=== PATIENT | male | born 1960 | race Caucasian/White ===

== ENCOUNTER 2018-09-13 09:01 | Day surgery (SDC) | payer MEDICAID ==
[2018-09-09 10:44] LABS: BASOPHILS % (AUTO) 0.9 % (0-1); EOSINOPHILS # (AUTO) 0.1 X10'3 (0-0.9); EOSINOPHILS % (AUTO) 2.9 % (0-6); LYMPHOCYTES # (AUTO) 0.7 X10'3 (1.1-4.8); LYMPHOCYTES % (AUTO) 22.4 % (21-51); MEAN CORPUSCULAR HEMOGLOBIN 32.8 PG (27.0-31.0); MEAN CORPUSCULAR HGB CONC 34.1 g/dL (33.0-36.5); MEAN CORPUSCULAR VOLUME 96.2 FL (78-98); MEAN PLATELET VOLUME 6.8 FL (7.4-10.4); MONOCYTES # (AUTO) 0.3 X10'3 (0-0.9); MONOCYTES % (AUTO) 9.7 % (2-12); NEUTROPHILS # (AUTO) 1.9 X10'3 (1.8-7.7); NEUTROPHILS % (AUTO) 64.1 % (42-75); PRE OP HEMATOCRIT 39.2 % (42.0-52.0); PRE OP HEMOGLOBIN 13.4 g/dL (14.0-17.9); PRE OP PLATELET COUNT 171 X10'3 (140-440); RED BLOOD COUNT 4.08 X10'6 (4.70-6.10); RED CELL DISTRIBUTION WIDTH 13.7 % (11.5-14.5)
[2018-09-09 10:46] LABS: CLARITY,URINE CLEAR (Clear); COLOR,URINE YELLOW (Yellow); GLUCOSE, URINE NEGATIVE (Neg); KETONES,URINE NEGATIVE (Neg); LEUKOCYTE ESTERASE ,URINE NEGATIVE (Neg); NITRITES, URINE NEGATIVE (Neg); OCCULT BLOOD,URINE NEGATIVE (Neg); PROTEIN,URINE NEGATIVE (Neg); UA COLLECTION TYPE NON-SPECIFIED; UROBILINOGEN,URINE 0.2 E.U/dL (0.2-1.0)
[2018-09-09 11:07] LABS: ALBUMIN 3.8 G/DL (3.4-5.0); ALBUMIN/GLOBULIN RATIO 1.2 (1.1-1.5); ALKALINE PHOSPHATASE 73 IU/L (46-116); BLOOD UREA NITROGEN 12 MG/DL (7-18); BUN/CREATININE RATIO 10.3 (5.4-32.0); CALCIUM 8.8 MG/DL (8.5-10.1); CHLORIDE 102 MMOL/L (99-107); CREATININE 1.16 MG/DL (0.60-1.10); PRE OP ALT 19 U/L (30-65); PRE OP ANION GAP 9 (8-16); PRE OP AST 23 U/L (10-37); PRE OP BILIRUB, TOTAL 0.5 MG/DL (0.0-1.0); PRE OP GLUCOSE 86 MG/DL (70-104); PRE OP SODIUM 138 MMOL/L (135-145); TOTAL CARBON DIOXIDE 27.4 MMOL/L (24-32); TOTAL PROTEIN 7.1 G/DL (6.4-8.2); eGFR 64 ML/MIN
[2018-09-09 11:27] LABS: PRE OP PROTIME 10.4 SECONDS (9.0-12.0)
[2018-09-13] VITALS (8 sets, daily range): BP systolic 111–135; BP diastolic 80–90
[~2018-09-13] VITALS: Ht 172.7 cm; Wt 68.0 kg
[~2018-09-13 09:01] MED LIST: ALBU18HF2 INH; BACDS PO; DOLU50TA PO; ECON15CR2 TP; EMTR1TAB18 PO; FLUT16SP2 BOTHNARES; HYDR-4383 PO; IBUP-1985 PO; OLOP2.5D OP; cefazolin/dext.iso 2gm/50ml 50 ML IV ONE; famotidine 20mg tablet PO ONE; ringers solution, lacted 1,000 ML IV SCH
[2018-09-13] MEDS ORDERED: ringers solution, lacted 1,000 ML IV SCH ×2 (10:56→11:01)
[2018-09-13] MEDS ORDERED: proCHLORperazine 10 MG/2 ml inj IV PRN ×2 (11:00→11:05)
[2018-09-13] MEDS ORDERED: meperidine/PF 25mg/ml syringe IV PRN ×6 (11:00→11:05)
[2018-09-13] MEDS ORDERED: ondansetron/PF 4mg/2ml inj IV PRN ×2 (11:00→11:05)
[2018-09-13] MEDS ORDERED: morphine 4 MG/ML inj SYRINge IV PRN ×4 (11:00→11:05)
[2018-09-13] MEDS ORDERED: fentaNYL/PF 50MCG/1 ML 2ML syringe ONE (11:10)
[2018-09-13] MEDS ORDERED: midazolam 2 mg/2 ml injection ONE (11:10)
[2018-09-13] MEDS ORDERED: LIDOcaine 1%/PF 5ML 10 MG/ML VIAL ONE (11:11)
[2018-09-13] MEDS ORDERED: ROPIVAcaine 0.5% (5mg/ml) 30ml vial ONE (11:24)
[2018-09-13] MEDS ORDERED: desflurane 240ml liquid inh. IH ONE (11:35)
[2018-09-13] MEDS ORDERED: ketorolac trometh. 30mg/ml inj. ONE (12:16)
[2018-09-13] MEDS ORDERED: propofol inj 20 ML IV ONE (12:17)
--- NOTE | 2018-09-13 12:30 | NUR ---
Received from OR via bed, accompanied by Anesthesiologist. Report received. Initial physical assessment done and recorded.
--- NOTE | 2018-09-13 13:30 | NUR ---
Discharge criteria met, discharge instructions given, demonstrates verbal understanding. Discharged home in good condition.
== END 2018-09-13 13:30 | disposition home or self-care (01) ==
LOC: PAS 09:01
PROVIDERS: ATTEND Surgery
DX: K62.0 Anal polyp (principal); J44.9 Chronic obstructive pulmonary disease, unspecified; Z98.890 Other specified postprocedural states; Z79.899 Other long term (current) drug therapy; I10 Essential (primary) hypertension; Z21 Asymptomatic human immunodeficiency virus [HIV] infection status
CPT/HCPCS: 36415; 46922; 80053; 81003; 82948; 85025; 85610; 85730; 93005; A6224; A6449; J0690; J1885; J2001; J2250; J2704; J3010; A7000; J2795; J7120

== ENCOUNTER 2019-06-12 10:26 | Day surgery (SDC) | payer MEDICAID ==
[2019-06-09 11:54] LABS: BASOPHILS % (AUTO) 0.6 % (0-1); EOSINOPHILS # (AUTO) 0.2 X10'3 (0-0.9); EOSINOPHILS % (AUTO) 3.9 % (0-6); HEMATOCRIT 39.3 % (42.0-52.0); HEMOGLOBIN 13.3 g/dl (14.0-17.9); LYMPHOCYTES # (AUTO) 0.9 X10'3 (1.1-4.8); LYMPHOCYTES % (AUTO) 17.6 % (21-51); MEAN CORPUSCULAR HEMOGLOBIN 33.8 PG (27.0-31.0); MEAN CORPUSCULAR VOLUME 99.5 FL (78-98); MEAN PLATELET VOLUME 6.9 FL (7.4-10.4); MONOCYTES # (AUTO) 0.4 X10'3 (0-0.9); MONOCYTES % (AUTO) 8.5 % (2-12); NEUTROPHILS # (AUTO) 3.4 X10'3 (1.8-7.7); NEUTROPHILS % (AUTO) 69.4 % (42-75); PLATELET COUNT 170 X10'3 (140-440); RED BLOOD COUNT 3.94 X10'6 (4.70-6.10); WHITE BLOOD COUNT 4.8 X10'3 (4.5-11.0)
[2019-06-09 12:05] LABS: PARTIAL THROMBOPLASTIN TIME 26 SECONDS (22-32)
[2019-06-09 12:08] LABS: ALANINE AMINOTRANSFERASE 15 U/L (12-78); ALBUMIN 4.1 G/DL (3.4-5.0); ALBUMIN/GLOBULIN RATIO 1.1 (1.1-1.5); ALKALINE PHOSPHATASE 80 IU/L (46-116); ANION GAP 7 (8-16); ASPARTATE AMINO TRANSFERASE 20 U/L (10-37); BILIRUBIN,TOTAL 0.3 MG/DL (0.1-1.0); BLOOD UREA NITROGEN 9 MG/DL (7-18); BUN/CREATININE RATIO 7.4 (5.4-32.0); CALCIUM 8.4 MG/DL (8.5-10.1); CHLORIDE 105 MMOL/L (99-107); CREATININE 1.22 MG/DL (0.60-1.10); GLUCOSE 89 MG/DL (70-104); POTASSIUM 4.5 MMOL/L (3.5-5.1); SODIUM 139 MMOL/L (135-145); TOTAL CARBON DIOXIDE 26.8 MMOL/L (24-32); TOTAL PROTEIN 7.7 G/DL (6.4-8.2); eGFR 61 ML/MIN
[2019-06-12] VITALS (10 sets, daily range): BP systolic 101–161; BP diastolic 67–102
[~2019-06-12] VITALS: Ht 172.7 cm; Wt 69.6 kg
[~2019-06-12 10:26] MED LIST changes: +ECON15CR13 TP; -ECON15CR2 TP; -cefazolin/dext.iso 2gm/50ml 50 ML IV ONE; -famotidine 20mg tablet PO ONE; -ringers solution, lacted 1,000 ML IV SCH
[2019-06-12] MEDS ORDERED: normal saline 1,000 ML IV SCH (10:55)
[2019-06-12] MEDS ORDERED: nitroGLYCERIN 0.4mg SUBLingual tab SL PRN (10:55)
[2019-06-12] MEDS ORDERED: diphenhydrAMINE 25mg capsule PO PRN (10:55)
[2019-06-12] MEDS ORDERED: LORazepam 0.5 MG tablet PO PRN (10:55)
[2019-06-12] MEDS ORDERED: SULF1TAB49 PO (11:09)
[2019-06-12] MEDS ORDERED: midazolam 2 mg/2 ml injection ONE (12:02)
[2019-06-12] MEDS ORDERED: iohexol 350MG/ML 100ml bottle IV ONE (12:02)
[2019-06-12] MEDS ORDERED: fentaNYL/PF 50MCG/1 ML 2ML syringe ONE (12:02)
[2019-06-12] MEDS ORDERED: iohexol 350 MG/ML 50ML vial IV ONE (12:02)
[2019-06-12] MEDS ORDERED: LIDOcaine 1% (10mg/ml)w/preservative injection 20ml MDV ONE (12:02)
[2019-06-12] MEDS ORDERED: HYDROmorphone 1 mg/ml syringe ONE (12:17)
[2019-06-12] MEDS ORDERED: proCHLORperazine 10 MG/2 ml inj IV PRN (13:20)
[2019-06-12] MEDS ORDERED: acetaminophen 325mg tablet PO PRN (13:20)
[2019-06-12] MEDS ORDERED: HYDROcodone/acetaminophen 10/325mg tab PO PRN (13:20)
[2019-06-12] MEDS ORDERED: OXAZEpam 15mg capsule PO PRN (13:20)
[2019-06-12] MEDS ORDERED: ondansetron/PF 4mg/2ml inj IV PRN (13:20)
[2019-06-12] MEDS ORDERED: HYDROcodone/acetaminophen 5mg/325mg tablet PO PRN (13:20)
== END 2019-06-12 18:40 | disposition home or self-care (01) ==
LOC: SSTAY O 10:26
PROVIDERS: ATTEND Internal Medicine Cardiovascular Disease
DX: R94.39 Abnormal result of other cardiovascular function study (principal); E78.5 Hyperlipidemia, unspecified; I25.10 Atherosclerotic heart disease of native coronary artery without angina pectoris; J44.9 Chronic obstructive pulmonary disease, unspecified; Z85.048 Personal history of other malignant neoplasm of rectum, rectosigmoid junction, and anus; Z87.891 Personal history of nicotine dependence; Z79.899 Other long term (current) drug therapy; Z79.01 Long term (current) use of anticoagulants; Z86.19 Personal history of other infectious and parasitic diseases; Z92.21 Personal history of antineoplastic chemotherapy
CPT/HCPCS: 36415; 71046; 80053; 85025; 85610; 85730; 93458; 99152; 99153; C1769; J1170; J1644; J2001; J2250; J2405; J3010; J7030; Q0163; Q9967; A4620; A6258; C1760

== ENCOUNTER 2020-06-03 22:40 | Emergency (ER) | payer MEDICAID ==
[~2020-06-03] VITALS: Ht 175.3 cm; Wt 72.7 kg
[~2020-06-03 22:40] MED LIST changes: -BACDS PO; -ECON15CR13 TP; +ECON15CR4 TP; -OLOP2.5D OP; +OLOP2.5D12 OP; +SULF1TAB49 PO
[2020-06-03] MEDS ORDERED: LORazepam 2 mg/ml vial IV ONE (23:35)
--- NOTE | 2020-06-03 23:44 | NUR ---
patient began act erractically during PA Velazquez evaluation including becoming incontinent. Pa Velazquez is currently ruling out potential siezure.
[2020-06-03 23:54] LABS: BASOPHILS # (AUTO) 0.1 X10'3 (0-0.2); BASOPHILS % (AUTO) 0.5 % (0-1); EOSINOPHILS % (AUTO) 0.4 % (0-6); HEMATOCRIT 46.1 % (42.0-52.0); HEMOGLOBIN 15.9 g/dl (14.0-17.9); LYMPHOCYTES # (AUTO) 1.5 X10'3 (1.1-4.8); LYMPHOCYTES % (AUTO) 13.7 % (21-51); MEAN CORPUSCULAR HEMOGLOBIN 32.9 PG (27.0-31.0); MEAN CORPUSCULAR HGB CONC 34.4 g/dL (33.0-36.5); MEAN CORPUSCULAR VOLUME 95.4 FL (78-98); MEAN PLATELET VOLUME 7.2 FL (7.4-10.4); MONOCYTES # (AUTO) 0.8 X10'3 (0-0.9); MONOCYTES % (AUTO) 7.6 % (2-12); NEUTROPHILS # (AUTO) 8.3 X10'3 (1.8-7.7); NEUTROPHILS % (AUTO) 77.8 % (42-75); PLATELET COUNT 189 X10'3 (140-440); RED BLOOD COUNT 4.83 X10'6 (4.70-6.10); RED CELL DISTRIBUTION WIDTH 15.4 % (11.5-14.5); WHITE BLOOD COUNT 10.7 X10'3 (4.5-11.0)
[2020-06-04] MEDS ORDERED: iohexol 350MG/ML 100ml bottle IV ONE (00:02)
[2020-06-04 00:15] LABS: ALANINE AMINOTRANSFERASE 38 U/L (12-78); ALBUMIN/GLOBULIN RATIO 1.2 (1.1-1.5); ALKALINE PHOSPHATASE 90 IU/L (46-116); ANION GAP 11 (8-16); ASPARTATE AMINO TRANSFERASE 108 U/L (10-37); BILIRUBIN,TOTAL 0.8 MG/DL (0.1-1.0); BLOOD UREA NITROGEN 12 MG/DL (7-18); BUN/CREATININE RATIO 9.4 (5.4-32.0); CALCIUM 9.2 MG/DL (8.5-10.1); CHLORIDE 98 MMOL/L (99-107); CREATININE 1.28 MG/DL (0.60-1.10); GLUCOSE 139 MG/DL (70-104); SODIUM 135 MMOL/L (135-145); TOTAL CARBON DIOXIDE 26.3 MMOL/L (24-32); TOTAL PROTEIN 9.1 G/DL (6.4-8.2); TROPONIN I < 0.04 NG/ML (0.0-0.05); eGFR 57 ML/MIN
[2020-06-04 00:20] VITALS: BP 151/107
[2020-06-04 00:22] LABS: POTASSIUM 4.3 MMOL/L (3.5-5.1)
[2020-06-04 00:36] LABS: CLARITY,URINE CLEAR (Clear); COLOR,URINE YELLOW (Yellow); GLUCOSE, URINE NEGATIVE (Neg); KETONES,URINE TRACE mg/dl (Neg); LEUKOCYTE ESTERASE ,URINE NEGATIVE (Neg); NITRITES, URINE NEGATIVE (Neg); OCCULT BLOOD,URINE LARGE (Neg); PROTEIN,URINE 30 mg/dl (Neg); UROBILINOGEN,URINE 0.2 E.U/dL (0.2-1.0)
[2020-06-04 00:38] LABS: UA COLLECTION TYPE STRAIGHT CATH; URINE AMPHETAMINE SCREEN NEGATIVE (Neg); URINE BARBITUATE SCREEN NEGATIVE (Neg); URINE BENZODIAZEPINES SCREEN NEGATIVE (Neg); URINE CANNABINOID SCREEN POSITIVE (Neg); URINE COCAINE SCREEN NEGATIVE (Neg); URINE METHADONE SCREEN NEGATIVE (Neg); URINE OPIATE SCREEN NEGATIVE (Neg); URINE PHENCYCLIDINE SCREEN NEGATIVE (Neg)
[2020-06-04 00:46] LABS: WBC,URINE 0-4 /HPF (0-4)
[2020-06-04 00:47] LABS: BACTERIA,URINE NONE SEEN /HPF (Neg); HYALINE CASTS 0-3 /LPF (NEGATIVE); MUCUS STRANDS MODERATE /LPF (Neg); SQUAMOUS EPITHELIAL CELL,UR FEW /LPF (FEW); TRANSITIONAL EPI CELLS,URINE FEW /HPF
[2020-06-04 00:56] LABS: CKMB RELATIVE INDEX 1.2 RATIO (0-2.5); CREATINE KINASE 5598 U/L (39-308)
== END 2020-06-04 02:16 | disposition home or self-care (01) ==
LOC: ER 22:41
DX: R56.9 Unspecified convulsions (principal); G89.29 Other chronic pain; M54.9 Dorsalgia, unspecified; Z79.899 Other long term (current) drug therapy
CPT/HCPCS: 36415; 70450; 71275; 74174; 80053; 80305; 81001; 82550; 82553; 82948; 83605; 84145; 84484; 85025; 96374; 99285; J2060; Q9967; 96372

== ENCOUNTER 2020-07-19 18:13 | Inpatient (IN) | payer MEDICAID ==
[~2020-07-19] VITALS: Ht 170.2 cm; Wt 67.2 kg
[2020-07-19] MEDS ORDERED: normal saline 1000ML IV soln IVB ONE (18:20)
[2020-07-19] MEDS ORDERED: LORazepam 2 mg/ml vial IV ONE ×3 (18:50→19:05)
[2020-07-19] MEDS ORDERED: LORazepam 2 mg/ml vial ONE (18:50)
[2020-07-19 19:07] LABS: BASOPHILS % (AUTO) 0.7 % (0-1); EOSINOPHILS # (AUTO) 0.3 X10'3 (0-0.9); EOSINOPHILS % (AUTO) 4.5 % (0-6); HEMATOCRIT 43.8 % (42.0-52.0); HEMOGLOBIN 14.5 g/dl (14.0-17.9); LYMPHOCYTES % (AUTO) 16.1 % (21-51); MEAN CORPUSCULAR HEMOGLOBIN 33.2 PG (27.0-31.0); MEAN CORPUSCULAR HGB CONC 33.2 g/dL (33.0-36.5); MEAN PLATELET VOLUME 7.7 FL (7.4-10.4); MONOCYTES # (AUTO) 0.5 X10'3 (0-0.9); NEUTROPHILS # (AUTO) 4.2 X10'3 (1.8-7.7); NEUTROPHILS % (AUTO) 70.7 % (42-75); PLATELET COUNT 196 X10'3 (140-440); RED BLOOD COUNT 4.38 X10'6 (4.70-6.10); RED CELL DISTRIBUTION WIDTH 13.7 % (11.5-14.5)
[2020-07-19] MEDS ORDERED: levetiracetam inj 500 MG in normal saline 100ml IV soln 95 ML IV ONE (19:10)
[2020-07-19 19:15] LABS: ALANINE AMINOTRANSFERASE 22 U/L (12-78); ALBUMIN 4.3 G/DL (3.4-5.0); ALBUMIN/GLOBULIN RATIO 1.3 (1.1-1.5); ALKALINE PHOSPHATASE 71 IU/L (46-116); ANION GAP 20 (8-16); ASPARTATE AMINO TRANSFERASE 22 U/L (10-37); BILIRUBIN,TOTAL 0.4 MG/DL (0.1-1.0); BLOOD UREA NITROGEN 10 MG/DL (7-18); CALCIUM 8.7 MG/DL (8.5-10.1); CHLORIDE 102 MMOL/L (99-107); CREATINE KINASE 416 U/L (39-308); CREATININE 1.66 MG/DL (0.60-1.10); ETHANOL < 0.010 GM/DL (0.0-0.010); GLUCOSE 146 MG/DL (70-104); POTASSIUM 3.7 MMOL/L (3.5-5.1); SODIUM 139 MMOL/L (135-145); TOTAL CARBON DIOXIDE 17.4 MMOL/L (24-32); TOTAL PROTEIN 7.7 G/DL (6.4-8.2); eGFR 42 ML/MIN
--- NOTE | 2020-07-19 19:22 | NUR ---
dr ennis informed that patient has no gag and sounds like he needs nasopharyngeal suctioning patietn incontnent of urine during seizure activity
[2020-07-19] MEDS ORDERED: propofol 10mg/ml 20ml vial IV ONE (19:25)
[2020-07-19] MEDS ORDERED: rocuronium 10mg/ml inj IV ONE (19:25)
[2020-07-19] MEDS ORDERED: fentaNYL/PF 50MCG/1 ML 2ML syringe IV PRN (19:25)
--- NOTE | 2020-07-19 19:37 | NUR ---
to intubate to ensure airway r/t continuing siezures. Respiratory present. cleared C-collar removal
[2020-07-19] MEDS ORDERED: midazolam 100mg in NS 100ml 100 ML IV PRN (19:40)
[2020-07-19] MEDS ORDERED: FENTANYL-0.9 % NACL/PF 100 ML IV PRN (19:40)
--- NOTE | 2020-07-19 19:42 | NUR ---
PROPOFOL IN AND FLUSHED 100 MG ROCURONIUM IN FLUSHED 4 MAC BLADE 24 AT THE TEETH
[2020-07-19] MEDS: midazolam 100mg in NS 100ml 100 ML IV SCH ×2 (19:47→23:56)
[2020-07-19] MEDS: FENTANYL-0.9 % NACL/PF 100 ML IV PRN ×2 (19:54→23:55)
[2020-07-19] MEDS ORDERED: levetiracetam inj 1,000 MG in normal saline 100ml IV soln 90 ML IV SCH (20:00)
[2020-07-19] MEDS ORDERED: acetaminophen 650mg rectal suppository RC PRN (20:10)
[2020-07-19] MEDS ORDERED: potassium Cl 40MEQ/250ML bag 270 ML IV PRN (20:10)
[2020-07-19] MEDS ORDERED: albuterol 2.5 MG/3 ML nebule NEB PRN (20:10)
[2020-07-19] MEDS ORDERED: acetaminophen 325mg tablet PO PRN ×2 (20:10)
[2020-07-19] MEDS ORDERED: ondansetron/PF 4mg/2ml inj IV PRN (20:10)
[2020-07-19] MEDS: sodium chloride 0.45% 1,000 ML IV SCH ×4 (20:35→23:58)
[2020-07-19 20:40] LABS: ABG HCO3 24.5 mmol/L (22.0-26.0); ABG OXYGEN SATURATION 98.8 % (94-97); ABG PCO2 (T) 58.9 mmHg (35.0-48.0); ABG PO2 (T) 181.5 mmHg (75.0-100.0); ALLEN'S TEST POSITIVE; FCOHb 2.7 % (0.0-3.9); FMetHb 0.3 % (0.0-1.5); FO2Hb 95.8 % (94-97); PEEP 5 cm H2O; RESPIRATORY RATE 14 b/min; TIDAL VOLUME 450 mL; TOTAL HEMOGLOBIN 15.1 G/dl (14.0-18.0)
[2020-07-19] MEDS: CefTRIAXone 2gm/D5W 50ml BAG 50 ML IV SCH (20:40)
[2020-07-19 20:42] LABS: MAGNESIUM 2.3 MG/DL (1.5-2.4); PHOSPHORUS 4.8 MG/DL (2.3-4.5)
[2020-07-19 20:57] LABS: PARTIAL THROMBOPLASTIN TIME 22 SECONDS (22-32)
[2020-07-19] MEDS: propofol 1000mg/100ml bottle 100 ML IV SCH ×2 (21:16→23:53)
[2020-07-19] MEDS ORDERED: LORazepam 2 mg/ml vial IV PRN (21:40)
[2020-07-19 21:47] LABS: CLARITY,URINE CLEAR (Clear); COLOR,URINE YELLOW (Yellow); GLUCOSE, URINE NEGATIVE (Neg); KETONES,URINE NEGATIVE (Neg); LEUKOCYTE ESTERASE ,URINE NEGATIVE (Neg); NITRITES, URINE NEGATIVE (Neg); OCCULT BLOOD,URINE SMALL (Neg); PH,URINE 6.5 (4.8-8.0); PROTEIN,URINE TRACE mg/dl (Neg); UROBILINOGEN,URINE 0.2 E.U/dL (0.2-1.0)
[2020-07-19 21:52] LABS: UA COLLECTION TYPE FOLEY CATH
[2020-07-19 21:55] LABS: BACTERIA,URINE NONE SEEN /HPF (Neg); MUCUS STRANDS NONE SEEN /LPF (Neg); SQUAMOUS EPITHELIAL CELL,UR NONE SEEN /LPF (FEW); WBC,URINE 0-4 /HPF (0-4)
[2020-07-19 22:00] VITALS: BP 107/74
[2020-07-19 22:00] LABS: URINE AMPHETAMINE SCREEN NEGATIVE (Neg); URINE BARBITUATE SCREEN NEGATIVE (Neg); URINE BENZODIAZEPINES SCREEN POSITIVE (Neg); URINE CANNABINOID SCREEN POSITIVE (Neg); URINE COCAINE SCREEN NEGATIVE (Neg); URINE METHADONE SCREEN NEGATIVE (Neg); URINE OPIATE SCREEN NEGATIVE (Neg); URINE PHENCYCLIDINE SCREEN NEGATIVE (Neg)
[2020-07-19] MEDS: azithromycin/NS 500mg/250ml 250 ML IV SCH (22:05)
[2020-07-19 22:24] LABS: ALANINE AMINOTRANSFERASE 21 U/L (12-78); ALBUMIN/GLOBULIN RATIO 1.3 (1.1-1.5); ALKALINE PHOSPHATASE 67 IU/L (46-116); ANION GAP 8 (8-16); ASPARTATE AMINO TRANSFERASE 22 U/L (10-37); BILIRUBIN,TOTAL 0.4 MG/DL (0.1-1.0); BLOOD UREA NITROGEN 8 MG/DL (7-18); BUN/CREATININE RATIO 6.8 (5.4-32.0); CHLORIDE 102 MMOL/L (99-107); CREATININE 1.17 MG/DL (0.60-1.10); GLUCOSE 132 MG/DL (70-104); POTASSIUM 3.8 MMOL/L (3.5-5.1); SODIUM 137 MMOL/L (135-145); TOTAL CARBON DIOXIDE 26.6 MMOL/L (24-32); TOTAL PROTEIN 7.2 G/DL (6.4-8.2); eGFR 63 ML/MIN
[2020-07-19 22:30] VITALS: BP 91/63
[2020-07-19 23:00] VITALS: BP 94/76
[2020-07-19] MEDS: ipratropium/albuterol 3ml nebule NEB SCH (23:26)
[2020-07-19 23:30] VITALS: BP 112/80
[2020-07-20] VITALS (24 sets, daily range): BP systolic 84–129; BP diastolic 56–84
[2020-07-20] MEDS: sodium chloride 0.45% 1,000 ML IV SCH ×5 (00:16→12:56)
[2020-07-20 03:21] LABS: ALANINE AMINOTRANSFERASE 23 U/L (12-78); ALBUMIN 3.8 G/DL (3.4-5.0); ALBUMIN/GLOBULIN RATIO 1.2 (1.1-1.5); ALKALINE PHOSPHATASE 64 IU/L (46-116); ANION GAP 11 (8-16); ASPARTATE AMINO TRANSFERASE 26 U/L (10-37); BILIRUBIN,TOTAL 0.5 MG/DL (0.1-1.0); BLOOD UREA NITROGEN 7 MG/DL (7-18); CALCIUM 8.3 MG/DL (8.5-10.1); CHLORIDE 103 MMOL/L (99-107); GLUCOSE 114 MG/DL (70-104); MAGNESIUM 2.3 MG/DL (1.5-2.4); PHOSPHORUS 3.6 MG/DL (2.3-4.5); POTASSIUM 3.8 MMOL/L (3.5-5.1); SODIUM 139 MMOL/L (135-145); TOTAL CARBON DIOXIDE 25.2 MMOL/L (24-32); eGFR 76 ML/MIN
[2020-07-20 03:22] LABS: TRIGLYCERIDES 159 MG/DL (20-135)
[2020-07-20] MEDS: ipratropium/albuterol 3ml nebule NEB SCH ×6 (03:41→23:00)
[2020-07-20 03:50] LABS: BASOPHILS % (AUTO) 0.2 % (0-1); EOSINOPHILS % (AUTO) 0.5 % (0-6); HEMATOCRIT 40.1 % (42.0-52.0); HEMOGLOBIN 13.8 g/dl (14.0-17.9); LYMPHOCYTES # (AUTO) 0.5 X10'3 (1.1-4.8); LYMPHOCYTES % (AUTO) 5.2 % (21-51); MEAN CORPUSCULAR HEMOGLOBIN 33.9 PG (27.0-31.0); MEAN CORPUSCULAR HGB CONC 34.5 g/dL (33.0-36.5); MEAN CORPUSCULAR VOLUME 98.4 FL (78-98); MEAN PLATELET VOLUME 7.6 FL (7.4-10.4); MONOCYTES # (AUTO) 0.7 X10'3 (0-0.9); MONOCYTES % (AUTO) 6.4 % (2-12); NEUTROPHILS # (AUTO) 9.3 X10'3 (1.8-7.7); NEUTROPHILS % (AUTO) 87.7 % (42-75); PLATELET COUNT 181 X10'3 (140-440); RED BLOOD COUNT 4.08 X10'6 (4.70-6.10); RED CELL DISTRIBUTION WIDTH 13.7 % (11.5-14.5); WHITE BLOOD COUNT 10.6 X10'3 (4.5-11.0)
[2020-07-20 03:55] LABS: ABG BASE EXCESS -2.3 mmol/L (-2.0-2.0); ABG HCO3 22.8 mmol/L (22.0-26.0); ABG OXYGEN SATURATION 98.9 % (94-97); ABG PCO2 (T) 40.3 mmHg (35.0-48.0); ABG PO2 (T) 142.2 mmHg (75.0-100.0); ALLEN'S TEST POSITIVE; FCOHb 1.1 % (0.0-3.9); FMetHb 0.1 % (0.0-1.5); FO2Hb 97.7 % (94-97); PATIENT TEMPERATURE 36.9; PEEP 5 cm H2O; RESPIRATORY RATE 18 b/min; TIDAL VOLUME 450 mL; TOTAL HEMOGLOBIN 14.4 G/dl (14.0-18.0)
[2020-07-20] MEDS ORDERED: FENTANYL-0.9 % NACL/PF 100 ML IV PRN (06:00)
[2020-07-20] MEDS: propofol 1000mg/100ml bottle 100 ML IV SCH (06:04)
[2020-07-20] MEDS: NORepinephrine 8mg/ 250ml NS 250 ML IV SCH (06:25)
[2020-07-20] MEDS: docusate sod 100mg capsule PO SCH ×2 (08:00→20:00)
[2020-07-20] MEDS: pantoprazole 40 MG vial IV SCH (08:06)
[2020-07-20] MEDS: levetiracetam-NS 1000mg/100ml 100 ML IV SCH ×2 (08:06→20:28)
[2020-07-20] MEDS: heparin, porcine 5000 units/ml vial SQ SCH ×2 (08:07→20:28)
[2020-07-20] MEDS ORDERED: LEVE750T PO (10:26)
[2020-07-20] MEDS ORDERED: BACDS PO (10:26)
--- NOTE | 2020-07-20 11:30 | NUR ---
Extubated per MD order. Patient tolerating well
--- NOTE | 2020-07-20 11:34 | NUR ---
PT WAS EXTUBATED WITH NO WEANING PARAMETERS PER DR. BOSWELL. PT CURRENTLY ON 3L SPO2 97% NO SOB OR DISTRESS. RT WILL CONTINUE TO MONITOR. Addendum: 07/20/20 at 1156 by Millie Irwin RT Amended: Links added.
--- NOTE | 2020-07-20 11:43 | NUR ---
Presented to ED with seizures, now intubated and sedated. Per MD note possible aspiration pneumonia and will see if will extubate soon. NPO, no TF consult at this time. recommend: 1. IF TF, vital AF 65 ml/hr 2. when extubated, advance diet as medically indicated to heart healthy 3. wt per rx Addendum: 07/20/20 at [address] Amended: Links added.
--- NOTE | 2020-07-20 18:07 | NUR ---
Patient in room ICU 2040. I have received report from Sen LAZAR and had the opportunity to ask questions and assume patient care.
--- NOTE | 2020-07-20 18:56 | NUR ---
patient cannot eat a regular diet unless it is soft. Dietary will bring patient a egg salad sandwich for patient. patient states he does not have his teeth and did not bring his dentures.
[2020-07-20] MEDS ORDERED: HYDROcodone/acetaminophen 5mg/325mg tablet PO PRN (20:50)
[2020-07-20] MEDS: CefTRIAXone 2gm/D5W 50ml BAG 50 ML IV SCH (20:57)
[2020-07-20] MEDS ORDERED: emtricitabine/tenofovir 200mg/300mg tablet PO ONE (21:00)
[2020-07-20] MEDS ORDERED: fluticasone nasal spray 16GM bottle NS PRN (21:00)
--- NOTE | 2020-07-20 21:00 | NUR ---
patient states he did not take his HIV medication since Thursday 07/19 night. He states he is to take his meds every night. He has attempted to call his sister multiple times but no response. patient reuses the compatible HIV medication since pharmacy did not have the exact medication here. Patient states that his family will bring in the medication tomorrow.
[2020-07-20] MEDS: azithromycin/NS 500mg/250ml 250 ML IV SCH (22:14)
[2020-07-20] MEDS ORDERED: raltegravir 400mg tablet PO ONE (22:50)
[2020-07-21] VITALS (14 sets, daily range): BP systolic 108–146; BP diastolic 66–99
[2020-07-21] MEDS: sodium chloride 0.45% 1,000 ML IV SCH (00:31)
[2020-07-21] MEDS: mineral oil/petrolatum ophthal oint EACHEYE SCH ×2 (02:00→08:00)
[2020-07-21] MEDS: NORepinephrine 8mg/ 250ml NS 250 ML IV SCH (02:16)
[2020-07-21 03:46] LABS: BASOPHILS % (AUTO) 0.5 % (0-1); EOSINOPHILS # (AUTO) 0.1 X10'3 (0-0.9); EOSINOPHILS % (AUTO) 0.7 % (0-6); HEMATOCRIT 38.2 % (42.0-52.0); HEMOGLOBIN 12.9 g/dl (14.0-17.9); LYMPHOCYTES # (AUTO) 0.7 X10'3 (1.1-4.8); LYMPHOCYTES % (AUTO) 8.1 % (21-51); MEAN CORPUSCULAR HEMOGLOBIN 33.2 PG (27.0-31.0); MEAN CORPUSCULAR HGB CONC 33.9 g/dL (33.0-36.5); MEAN CORPUSCULAR VOLUME 98.1 FL (78-98); MEAN PLATELET VOLUME 7.6 FL (7.4-10.4); MONOCYTES # (AUTO) 0.6 X10'3 (0-0.9); MONOCYTES % (AUTO) 7.4 % (2-12); NEUTROPHILS # (AUTO) 6.9 X10'3 (1.8-7.7); NEUTROPHILS % (AUTO) 83.3 % (42-75); PLATELET COUNT 157 X10'3 (140-440); RED BLOOD COUNT 3.89 X10'6 (4.70-6.10); RED CELL DISTRIBUTION WIDTH 13.5 % (11.5-14.5); WHITE BLOOD COUNT 8.2 X10'3 (4.5-11.0)
--- NOTE | 2020-07-21 03:50 | NUR ---
patient refuses bed change, he stated he took a shower the other day and feels clean. will continue to educate patient
[2020-07-21 03:52] LABS: ALANINE AMINOTRANSFERASE 20 U/L (12-78); ALBUMIN 3.3 G/DL (3.4-5.0); ALKALINE PHOSPHATASE 59 IU/L (46-116); ANION GAP 12 (8-16); ASPARTATE AMINO TRANSFERASE 32 U/L (10-37); BILIRUBIN,TOTAL 0.5 MG/DL (0.1-1.0); BLOOD UREA NITROGEN 8 MG/DL (7-18); BUN/CREATININE RATIO 9.3 (5.4-32.0); CALCIUM 8.5 MG/DL (8.5-10.1); CHLORIDE 105 MMOL/L (99-107); CREATININE 0.86 MG/DL (0.60-1.10); GLUCOSE 97 MG/DL (70-104); PHOSPHORUS 2.8 MG/DL (2.3-4.5); POTASSIUM 3.7 MMOL/L (3.5-5.1); SODIUM 142 MMOL/L (135-145); TOTAL CARBON DIOXIDE 24.8 MMOL/L (24-32); TOTAL PROTEIN 6.6 G/DL (6.4-8.2); eGFR 90 ML/MIN
--- NOTE | 2020-07-21 06:11 | NUR ---
patient starting to have a wet cough and has green/ yellow sputum. will pass on to day shift nurse. no other s.s
--- NOTE | 2020-07-21 06:15 | NUR ---
Patient in room ICU 2040. I have received report from iftikhar amato and had the opportunity to ask questions and assume patient care.
--- NOTE | 2020-07-21 06:28 | NUR ---
Problems reprioritized. Patient report given, questions answered & plan of care reviewed with Afua LAZAR.
[2020-07-21] MEDS: pantoprazole 40 MG vial IV SCH (07:38)
[2020-07-21] MEDS: levetiracetam-NS 1000mg/100ml 100 ML IV SCH (07:43)
[2020-07-21] MEDS: docusate sod 100mg capsule PO SCH (08:00)
[2020-07-21] MEDS ORDERED: DOLUTEGRAVIR SODIUM PO SCH (08:00)
[2020-07-21] MEDS ORDERED: TYPE IN GENERIC & BRAND NAME OF PATIENT MED STRENGTH & FORM EACHEYE SCH (08:00)
[2020-07-21] MEDS ORDERED: (Emtricitabine/Tenofov Alafenam (Descovy 200-25 mg Tablet) 1 TAB) PO SCH (08:00)
[2020-07-21] MEDS: heparin, porcine 5000 units/ml vial SQ SCH (08:05)
[2020-07-21] MEDS: propofol 1000mg/100ml bottle 100 ML IV SCH (11:18)
--- NOTE | 2020-07-21 11:30 | NUR ---
f/c dc'd w/o problem,CL dc'd from right neck with sterile technique,pressure held,site clear
--- NOTE | 2020-07-21 13:54 | NUR ---
reviewed all discharge instructions with pt,,no new prescriptions,media planner in to discuss home health to contact, contacted pts sister redd for ride home,she states she will be here in approx 2 hours,due to need to borrow vehicle
--- NOTE | 2020-07-21 14:25 | NUR ---
sister redd stated she could not pickle cutter until 5 pm,yellow cab transport approved with commercial housekeeper haydee davis from [facility],site clear pt awaiting cab in wheelchair in room with all belongings
--- NOTE | 2020-07-21 14:49 | NUR ---
dc'd to [facility]
[2020-07-21] MEDS ORDERED: lactulose 20gm/30ml cup PO PRN (20:10)
== END 2020-07-21 15:00 | disposition home health service (06) | DRG 53 ==
LOC: ER 18:14 → ED HOLD 20:07 → UNDOADMIN 20:27 → ED HOLD 21:43 → ICU 2S 21:43
PROVIDERS: ADMIT Internal Medicine Critical Care Medicine; ATTEND Internal Medicine Critical Care Medicine
PROC: 5A1935Z Respiratory Ventilation, Less than 24 Consecutive Hours (ICD-10-PCS; principal; 2020-07-19)
PROC: 0BH17EZ Insertion of Endotracheal Airway into Trachea, Via Natural or Artificial Opening (ICD-10-PCS; 2020-07-19)
PROC: 02HV33Z Insertion of Infusion Device into Superior Vena Cava, Percutaneous Approach (ICD-10-PCS; 2020-07-19)
PROC: B548ZZA Ultrasonography of Superior Vena Cava, Guidance (ICD-10-PCS; 2020-07-19)
DX: G40.901 Epilepsy, unspecified, not intractable, with status epilepticus (principal); I10 Essential (primary) hypertension; J96.00 Acute respiratory failure, unspecified whether with hypoxia or hypercapnia; J44.9 Chronic obstructive pulmonary disease, unspecified; Z96.641 Presence of right artificial hip joint; B19.20 Unspecified viral hepatitis C without hepatic coma; G89.29 Other chronic pain; Z20.828 Contact with and (suspected) exposure to other viral communicable diseases; M54.9 Dorsalgia, unspecified; Z85.048 Personal history of other malignant neoplasm of rectum, rectosigmoid junction, and anus; Z79.899 Other long term (current) drug therapy
CPT/HCPCS: 36415; 36600; 70450; 71045; 72125; 80053; 80177; 80305; 80320; 81001; 82550; 82803; 82948; 83605; 83735; 84100; 84478; 85018; 85025; 85610; 85730; 87040; 87070; 87081; 87635; 93005; 94002; 94003; 94640; 94760; 99285; C9113; G0378; J0456; J0696; J1644; J1953; J2060; J2704; J3010; J7030

== ENCOUNTER 2020-09-23 10:31 | Inpatient (IN) | payer MEDICAID ==
[~2020-09-23] VITALS: Ht 182.9 cm; Wt 75.1 kg
[2020-09-23] VITALS (7 sets, daily range): BP systolic 105–142; BP diastolic 76–99
[~2020-09-23 10:31] MED LIST changes: -ALBU18HF2 INH; -ECON15CR4 TP; -HYDR-4383 PO; +LEVE750T PO; +SULF1TAB45 PO; -SULF1TAB49 PO; +etomidate 2mg/ml inj. ONE
[2020-09-23] MEDS ORDERED: LORazepam 2 mg/ml vial IV ONE ×2 (11:10→11:30)
[2020-09-23] MEDS ORDERED: succinylcholine 20mg/ml inj IV ONE (11:23)
--- NOTE | 2020-09-23 11:28 | NUR ---
pt having a clonic tonic seizure. md at bedside. plans to prepare for intubation 1133- 1mg ativan given 1134- etomidate 20mg and succ 10ml given for sedation 1135- dr lloyd intubated pt with 8.0 tube, 23 teeth, positve color change, bilat breath sounds. tube secured to face 1138- dueñas catheter placed. og in place draining hamm color drainage 1140- chest xray called for verification of tube placements. pt is tolerating vent. versed running at ordered dose. keppra infusing.
[2020-09-23] MEDS ORDERED: LORazepam 2 mg/ml vial ONE (11:32)
[2020-09-23 11:33] LABS: BASOPHILS # (AUTO) 0.1 X10'3 (0-0.2); BASOPHILS % (AUTO) 0.8 % (0-1); EOSINOPHILS # (AUTO) 0.3 X10'3 (0-0.9); HEMATOCRIT 48.6 % (42.0-52.0); HEMOGLOBIN 15.6 g/dl (14.0-17.9); LYMPHOCYTES # (AUTO) 3.3 X10'3 (1.1-4.8); LYMPHOCYTES % (AUTO) 30.9 % (21-51); MEAN CORPUSCULAR HEMOGLOBIN 32.7 PG (27.0-31.0); MEAN CORPUSCULAR HGB CONC 32.1 g/dL (33.0-36.5); MEAN CORPUSCULAR VOLUME 101.8 FL (78-98); MONOCYTES # (AUTO) 0.9 X10'3 (0-0.9); MONOCYTES % (AUTO) 8.5 % (2-12); NEUTROPHILS # (AUTO) 6.2 X10'3 (1.8-7.7); NEUTROPHILS % (AUTO) 56.8 % (42-75); PLATELET COUNT 231 X10'3 (140-440); RED BLOOD COUNT 4.77 X10'6 (4.70-6.10); RED CELL DISTRIBUTION WIDTH 13.9 % (11.5-14.5); WHITE BLOOD COUNT 10.8 X10'3 (4.5-11.0)
[2020-09-23] MEDS ORDERED: LORazepam 2 mg/ml vial IV STA (11:44)
[2020-09-23] MEDS ORDERED: etomidate 2mg/ml inj. IV ONE (11:45)
[2020-09-23] MEDS ORDERED: midazolam 100mg in NS 100 ML INFUSION IV PRN (11:45)
[2020-09-23 11:46] LABS: ALANINE AMINOTRANSFERASE 22 U/L (12-78); ALBUMIN 4.9 G/DL (3.4-5.0); ALBUMIN/GLOBULIN RATIO 1.2 (1.1-1.5); ALKALINE PHOSPHATASE 91 IU/L (46-116); ANION GAP 23 (8-16); ASPARTATE AMINO TRANSFERASE 21 U/L (10-37); BILIRUBIN,TOTAL 0.4 MG/DL (0.1-1.0); BLOOD UREA NITROGEN 24 MG/DL (7-18); BUN/CREATININE RATIO 14.8 (5.4-32.0); CALCIUM 9.4 MG/DL (8.5-10.1); CHLORIDE 100 MMOL/L (99-107); CREATININE 1.62 MG/DL (0.60-1.10); GLUCOSE 192 MG/DL (70-104); POTASSIUM 3.4 MMOL/L (3.5-5.1); SODIUM 136 MMOL/L (135-145); TOTAL PROTEIN 9.1 G/DL (6.4-8.2); eGFR 44 ML/MIN
[2020-09-23 11:59] LABS: ETHANOL < 0.010 GM/DL (0.0-0.010); TOTAL CARBON DIOXIDE 12.6 MMOL/L (24-32)
[2020-09-23 12:07] LABS: ABG BASE EXCESS -19.5 mmol/L (-2.0-2.0); ABG HCO3 10.5 mmol/L (22.0-26.0); ABG OXYGEN SATURATION 98.3 % (94-97); ABG PCO2 (T) 39.5 mmHg (35.0-48.0); ABG PO2 (T) 170.5 mmHg (75.0-100.0); ALLEN'S TEST POSITIVE; FCOHb 2.2 % (0.0-3.9); FMetHb 0.4 % (0.0-1.5); FO2Hb 95.7 % (94-97); PEEP 5 cm H2O; RESPIRATORY RATE 12 b/min; TIDAL VOLUME 500 mL; TOTAL HEMOGLOBIN 15.4 G/dl (14.0-18.0)
[2020-09-23 12:10] LABS: CLARITY,URINE CLEAR (Clear); COLOR,URINE STRAW (Yellow); GLUCOSE, URINE NEGATIVE (Neg); KETONES,URINE NEGATIVE (Neg); LEUKOCYTE ESTERASE ,URINE TRACE (Neg); NITRITES, URINE NEGATIVE (Neg); OCCULT BLOOD,URINE MODERATE (Neg); PH,URINE 5.5 (4.8-8.0); PROTEIN,URINE TRACE mg/dl (Neg); UROBILINOGEN,URINE 0.2 E.U/dL (0.2-1.0)
[2020-09-23] MEDS ORDERED: levetiracetam inj 500 MG in normal saline 100ml IV soln 95 ML IV SCH ×5 (12:10→20:00)
[2020-09-23] MEDS ORDERED: Levetiracetam-NS 500mg/100ml 100 ML IV ONE (12:12)
[2020-09-23 12:16] LABS: UA COLLECTION TYPE CLN CATCH MIDSTREAM
[2020-09-23 12:18] LABS: URINE AMPHETAMINE SCREEN NEGATIVE (Neg); URINE BARBITUATE SCREEN NEGATIVE (Neg); URINE BENZODIAZEPINES SCREEN POSITIVE (Neg); URINE CANNABINOID SCREEN POSITIVE (Neg); URINE COCAINE SCREEN NEGATIVE (Neg); URINE METHADONE SCREEN NEGATIVE (Neg); URINE OPIATE SCREEN NEGATIVE (Neg); URINE PHENCYCLIDINE SCREEN NEGATIVE (Neg)
[2020-09-23 12:23] LABS: BACTERIA,URINE FEW /HPF (Neg); RBC,URINE 0-2 /HPF (0-2); SQUAMOUS EPITHELIAL CELL,UR FEW /LPF (FEW); WBC,URINE 0-4 /HPF (0-4)
[2020-09-23] MEDS ORDERED: LIDOcaine 2% 10ml TOPICAL JELLY (Urojet) TP ONE (13:10)
[2020-09-23] MEDS ORDERED: FENTANYL-0.9 % NACL/PF 100 ML IV PRN (13:10)
[2020-09-23] MEDS ORDERED: midazolam 2 mg/2 ml injection IV PRN (13:10)
[2020-09-23] MEDS ORDERED: midazolam 2 mg/2 ml injection IV ONE (13:10)
[2020-09-23] MEDS ORDERED: ondansetron/PF 4mg/2ml inj IV PRN (13:10)
[2020-09-23] MEDS ORDERED: ipratropium/albuterol 3ml nebule NEB PRN ×2 (13:10→15:30)
[2020-09-23] MEDS ORDERED: potassium Cl 40MEQ/1/2NS 520ml 520 ML IV PRN ×2 (13:10)
[2020-09-23] MEDS ORDERED: acetaminophen 325mg tablet PO PRN ×2 (13:10)
[2020-09-23] MEDS ORDERED: fentaNYL/PF 50MCG/1 ML 2ML syringe IV PRN (13:10)
[2020-09-23] MEDS ORDERED: potassium Cl 20 mEq SR tablet PO PRN ×2 (13:10)
--- NOTE | 2020-09-23 13:18 | NUR ---
Assumed care at 1300, given report by Roshni Ewing RN, pt. is intubated and mechanically ventilated S/P seizure, pt. has equal breath sounds bilaterally, equal chest rise and fall bilaterally.
[2020-09-23] MEDS ORDERED: ERGO500054 PO (13:25)
[2020-09-23] MEDS ORDERED: HYDR-3964 PO (13:25)
[2020-09-23] MEDS ORDERED: LEVE10006 PO (13:25)
--- NOTE | 2020-09-23 13:44 | NUR ---
Received pt report from ER nurse Eddie LAZAR. Awaiting arrival to room 2007.
[2020-09-23] MEDS: normal saline 1000ml 1,000 ML IV SCH ×2 (14:32→22:21)
[2020-09-23] MEDS ORDERED: ipratropium/albuterol 3ml nebule NEB SCH ×2 (15:00→21:00)
[2020-09-23 15:35] LABS: ALANINE AMINOTRANSFERASE 17 U/L (12-78); ALBUMIN 4.1 G/DL (3.4-5.0); ALBUMIN/GLOBULIN RATIO 1.2 (1.1-1.5); ALKALINE PHOSPHATASE 73 IU/L (46-116); ANION GAP 11 (8-16); ASPARTATE AMINO TRANSFERASE 28 U/L (10-37); BILIRUBIN,TOTAL 0.4 MG/DL (0.1-1.0); BLOOD UREA NITROGEN 20 MG/DL (7-18); BUN/CREATININE RATIO 16.4 (5.4-32.0); CALCIUM 8.7 MG/DL (8.5-10.1); CHLORIDE 102 MMOL/L (99-107); CREATININE 1.22 MG/DL (0.60-1.10); GLUCOSE 92 MG/DL (70-104); POTASSIUM 3.8 MMOL/L (3.5-5.1); SODIUM 135 MMOL/L (135-145); TOTAL CARBON DIOXIDE 22.4 MMOL/L (24-32); TOTAL PROTEIN 7.6 G/DL (6.4-8.2); eGFR 60 ML/MIN
[2020-09-23] MEDS ORDERED: HYDROcodone/acetaminophen 5mg/325mg tablet PO PRN (15:35)
[2020-09-23] MEDS ORDERED: naphazoline/pheniramine eye 1 DROP BOTTLE EACHEYE PRN (15:50)
[2020-09-23] MEDS ORDERED: fluticasone nasal spray 16GM bottle NS PRN (15:50)
[2020-09-23] MEDS ORDERED: ibuprofen 200mg tablet PO SCH (16:00)
--- NOTE | 2020-09-23 18:11 | NUR ---
Spoke with pt's sister Miranda, updated on pt's condition and asked if she was able to bring in patient's HIV medications since we do not stock those meds here. Miranda stated she would bring them tomorrow.
--- NOTE | 2020-09-23 18:44 | NUR ---
Problems reprioritized. Patient report given, questions answered & plan of care reviewed with Jb RN.
[2020-09-23] MEDS ORDERED: LORazepam 2 mg/ml vial IV PRN (19:05)
[2020-09-23] MEDS ORDERED: levetiracetam 250mg tablet PO SCH (20:00)
[2020-09-23] MEDS ORDERED: heparin, porcine 5000 units/ml vial SQ SCH (20:00)
[2020-09-23] MEDS ORDERED: docusate sod 100mg capsule PO SCH (20:00)
[2020-09-23] MEDS ORDERED: famotidine/PF 10 mg/ml inj IV SCH (20:00)
--- NOTE | 2020-09-23 20:50 | NUR ---
2029 Pt states that he needs to leave the hospital tonight because he has to go home and pay bills. Explained to pt that he had 2 seizures and was just extubated this afternoon and that its best for him to stay in the hospital so he can be monitored. Pt is very adamant and states that he understands the risk of leaving but still needs to go home tonight. 2044 Dr. Anthony notified that pt wants to leave AMA and requests to speak with the pt to try to get him to stay 2049 Dr. Anthony called on video to speak with pt, pt is very sleepy and states that he will stay at least for tonight. Pt's sister Miranda jerome. Will continue to monitor pt closely.
--- NOTE | 2020-09-23 22:10 | NUR ---
Pt is awake and A&Ox 4 now and states that he still needs to leave the hospital AMA, pt able to stand and ambulate with a steady gait, VSS. Charge nurse Eric and Dr. Anthony notified. IV's and dueñas removed, pt signed AMA form and called his sister Miranda to come and pick him up. All home medications returned to pt.
--- NOTE | 2020-09-23 22:50 | NUR ---
Pt's sister Miranda is here to pick him up, nurse tech transported pt down to the car via w/c.
[2020-09-24] MEDS ORDERED: TYPE IN GENERIC & BRAND NAME OF PATIENT MED STRENGTH & FORM PO SCH (08:00)
[2020-09-24] MEDS ORDERED: sulfamethoxazole/trimethoprim DS (800/160mg) tablet PO SCH (08:00)
[2020-09-24] MEDS ORDERED: mineral oil/petrolatum ophthal oint EACHEYE SCH (14:00)
[2020-09-29] MEDS ORDERED: ergocalciferol (vit D) capsule 1,250 MCG (50,000 UNITS) CAPSULE PO SCH (08:00)
== END 2020-09-23 22:50 | disposition left against medical advice (07) | DRG 890 ==
LOC: ER 10:31 → ED HOLD 13:06 → CICU 2S 14:05
PROVIDERS: ADMIT Internal Medicine Critical Care Medicine; ATTEND Internal Medicine Critical Care Medicine
PROC: 5A1935Z Respiratory Ventilation, Less than 24 Consecutive Hours (ICD-10-PCS; principal; 2020-09-23)
PROC: 0BH17EZ Insertion of Endotracheal Airway into Trachea, Via Natural or Artificial Opening (ICD-10-PCS; 2020-09-23)
DX: G40.901 Epilepsy, unspecified, not intractable, with status epilepticus (principal); J96.00 Acute respiratory failure, unspecified whether with hypoxia or hypercapnia; N17.9 Acute kidney failure, unspecified; B20 Human immunodeficiency virus [HIV] disease; I10 Essential (primary) hypertension; J44.9 Chronic obstructive pulmonary disease, unspecified; Z53.29 Procedure and treatment not carried out because of patient's decision for other reasons; Z96.641 Presence of right artificial hip joint; B19.20 Unspecified viral hepatitis C without hepatic coma; G89.29 Other chronic pain; M54.9 Dorsalgia, unspecified; Z85.048 Personal history of other malignant neoplasm of rectum, rectosigmoid junction, and anus; Z78.1 Physical restraint status; Z79.899 Other long term (current) drug therapy
CPT/HCPCS: 36415; 36600; 71045; 80053; 80305; 80320; 81001; 82140; 82803; 82948; 83605; 85018; 85025; 87040; 87070; 87088; 93005; 94002; 94640; 94760; 94799; 96374; 96375; 99291; G0378; J0330; J1644; J1953; J2060; J3010; J3490; J7030

== ENCOUNTER 2020-09-24 12:20 | Emergency (ER) | payer MEDICAID ==
[~2020-09-24] VITALS: Ht 172.7 cm; Wt 70.5 kg
[~2020-09-24 12:20] MED LIST changes: +ERGO500054 PO; +HYDR-3964 PO; +LEVE10006 PO; -LEVE750T PO; -etomidate 2mg/ml inj. ONE
--- NOTE | 2020-09-24 13:29 | NUR ---
After discussion with ER MD and Pt.'s family pt. went AMA from ICU this morning.
[2020-09-24] MEDS ORDERED: LORazepam 2 mg/ml vial ONE (13:32)
--- NOTE | 2020-09-24 13:33 | NUR ---
Pt. is having bizzare behavior, not answering questions. Pt. is having pre seizure activity per family.
--- NOTE | 2020-09-24 14:00 | NUR ---
Pt. back at baseline, pt. family member bedside and educated on use of call light if pre-seizure activity returns
[2020-09-24] MEDS ORDERED: levetiracetam 250mg tablet PO ONE (15:25)
[2020-09-24 16:34] VITALS: BP 117/80
[2020-09-24] MEDS ORDERED: chlordiazePOXIDE 25mg capsule PO ONE (16:55)
[2020-09-24] MEDS ORDERED: magnesium oxide 400mg tablet PO ONE (16:55)
== END 2020-09-24 18:30 | disposition home or self-care (01) ==
LOC: ER 12:21
DX: G40.909 Epilepsy, unspecified, not intractable, without status epilepticus (principal); G89.29 Other chronic pain; Z86.19 Personal history of other infectious and parasitic diseases; Z21 Asymptomatic human immunodeficiency virus [HIV] infection status; Z72.89 Other problems related to lifestyle; Z91.018 Allergy to other foods; Z79.899 Other long term (current) drug therapy
CPT/HCPCS: 82948; 93005; 99284; J2060

== ENCOUNTER 2021-07-17 08:03 | Inpatient (IN) | payer MEDICAID ==
[~2021-07-17] VITALS: Ht 170.2 cm; Wt 71.8 kg
[2021-07-17] MEDS ORDERED: levetiracetam inj 1,000 MG in normal saline 100ml IV soln 90 ML IV ONE (08:25)
[2021-07-17] MEDS ORDERED: magnesium 2GM in 50ml NS 50 ML IV ONE (08:25)
[2021-07-17] MEDS ORDERED: normal saline 1000ML IV soln IVB ONE ×2 (08:25→11:25)
[2021-07-17] MEDS ORDERED: LORazepam 2 mg/ml vial IV ONE ×2 (08:25→20:00)
[2021-07-17 08:48] LABS: BASOPHILS % (AUTO) 0.2 % (0-1); EOSINOPHILS % (AUTO) 0 % (0-6); HEMATOCRIT 41.1 % (42.0-52.0); LYMPHOCYTES % (AUTO) 5.3 % (21-51); MEAN CORPUSCULAR HEMOGLOBIN 32.8 PG (27.0-31.0); MEAN CORPUSCULAR HGB CONC 34.1 g/dL (33.0-36.5); MEAN CORPUSCULAR VOLUME 96.1 FL (78-98); MEAN PLATELET VOLUME 7.7 FL (7.4-10.4); MONOCYTES # (AUTO) 1.3 X10'3 (0-0.9); MONOCYTES % (AUTO) 6.7 % (2-12); NEUTROPHILS # (AUTO) 16.6 X10'3 (1.8-7.7); NEUTROPHILS % (AUTO) 87.8 % (42-75); PLATELET COUNT 161 X10'3 (140-440); RED BLOOD COUNT 4.28 X10'6 (4.70-6.10); RED CELL DISTRIBUTION WIDTH 13.9 % (11.5-14.5); WHITE BLOOD COUNT 18.9 X10'3 (4.5-11.0)
[2021-07-17 09:18] LABS: LACTIC SEPSIS 2.6 MMOL/L (0.4-2.0)
[2021-07-17 09:28] LABS: ALANINE AMINOTRANSFERASE 181 U/L (12-78); ALBUMIN 3.5 G/DL (3.4-5.0); ALBUMIN/GLOBULIN RATIO 1.1 (1.1-1.5); ALKALINE PHOSPHATASE 66 IU/L (46-116); ANION GAP 11 (8-16); ASPARTATE AMINO TRANSFERASE 623 U/L (10-37); BILIRUBIN,TOTAL 1.2 MG/DL (0.1-1.0); BLOOD UREA NITROGEN 43 MG/DL (7-18); BUN/CREATININE RATIO 26.7 (5.4-32.0); CALCIUM 8.7 MG/DL (8.5-10.1); CHLORIDE 101 MMOL/L (99-107); CREATININE 1.61 MG/DL (0.60-1.10); GLUCOSE 63 MG/DL (70-104); POTASSIUM 4.7 MMOL/L (3.5-5.1); SODIUM 135 MMOL/L (135-145); TOTAL CARBON DIOXIDE 23.5 MMOL/L (24-32); TOTAL PROTEIN 6.7 G/DL (6.4-8.2); eGFR 44 ML/MIN
[2021-07-17 09:43] LABS: ETHANOL < 0.010 GM/DL (0.0-0.010)
[2021-07-17] MEDS ORDERED: CefTRIAXone 2gm/D5W 50ml BAG 50 ML IV ONE (10:00)
[2021-07-17] MEDS ORDERED: normal saline 1000ML IV soln IV ONE (10:00)
[2021-07-17] MEDS ORDERED: LIDOcaine 2% 10ml TOPICAL JELLY (Urojet) TP ONE (10:05)
[2021-07-17 10:53] LABS: CREATINE KINASE 32829 U/L (39-308)
--- NOTE | 2021-07-17 12:43 | NUR ---
doctor aware no urine after dueñas placement.
[2021-07-17] MEDS ORDERED: potassium Cl 20 mEq SR tablet PO PRN ×2 (12:55)
[2021-07-17] MEDS ORDERED: magnesium hydroxide 30ml (MOM) UD suspension PO PRN (12:55)
[2021-07-17] MEDS ORDERED: ondansetron/PF 4mg/2ml inj IV PRN (12:55)
[2021-07-17] MEDS ORDERED: morphine 2 MG/ML inj. syringe IV PRN (12:55)
[2021-07-17] MEDS ORDERED: acetaminophen 325mg tablet PO PRN ×2 (12:55)
[2021-07-17] MEDS ORDERED: morphine 4 MG/ML inj SYRINge IV PRN (12:55)
[2021-07-17] MEDS: normal saline 1000ml 1,000 ML IV SCH (13:06)
[2021-07-17] MEDS ORDERED: LEVE10006 PO (13:10)
[2021-07-17] MEDS ORDERED: LACO150T2 PO (13:10)
[2021-07-17 13:43] LABS: CLARITY,URINE CLOUDY (Clear); COLOR,URINE YELLOW (Yellow); GLUCOSE, URINE NEGATIVE (Neg); KETONES,URINE TRACE mg/dl (Neg); LEUKOCYTE ESTERASE ,URINE NEGATIVE (Neg); NITRITES, URINE NEGATIVE (Neg); OCCULT BLOOD,URINE LARGE (Neg); PROTEIN,URINE 30 mg/dl (Neg); UROBILINOGEN,URINE 0.2 E.U/dL (0.2-1.0)
[2021-07-17 13:44] LABS: UA COLLECTION TYPE FOLEY CATH
[2021-07-17 13:51] LABS: BACTERIA,URINE 1+ /HPF (Neg); RBC,URINE TNTC /HPF (0-2)
[2021-07-17 13:52] LABS: COARSE GRANULAR CAST 0-3 /LPF (NEGATIVE); FINE GRANULAR CAST 0-3 /LPF (NEGATIVE); SQUAMOUS EPITHELIAL CELL,UR FEW /LPF (FEW)
[2021-07-17 14:22] LABS: URINE AMPHETAMINE SCREEN NEGATIVE (Neg); URINE BARBITUATE SCREEN NEGATIVE (Neg); URINE BENZODIAZEPINES SCREEN NEGATIVE (Neg); URINE CANNABINOID SCREEN POSITIVE (Neg); URINE COCAINE SCREEN NEGATIVE (Neg); URINE METHADONE SCREEN NEGATIVE (Neg); URINE OPIATE SCREEN NEGATIVE (Neg); URINE PHENCYCLIDINE SCREEN NEGATIVE (Neg)
[2021-07-17 15:45] VITALS: BP 103/71
[2021-07-17] MEDS ORDERED: ergocalciferol (vit D2) capsule 50,000 UNITS (1,250mcg) CAPSULE PO SCH (16:55)
[2021-07-17 17:06] VITALS: BP_DIAS 92
[2021-07-17] MEDS ORDERED: FLU VACC QS2021-22(6MOS UP)/PF 60 MCG/0.5 ML SYRINGE IM ONE (17:30)
[2021-07-17] MEDS: levetiracetam 250mg tablet PO SCH ×2 (17:46→20:39)
[2021-07-17 18:11] VITALS: BP 85/50
[2021-07-17] MEDS: LACOSAMIDE 50 MG TABLET PO SCH (20:39)
[2021-07-17 21:00] VITALS: BP 116/62
[2021-07-17 23:00] VITALS: BP 100/65
[2021-07-18] VITALS (8 sets, daily range): BP systolic 89–124; BP diastolic 58–88
[2021-07-18] MEDS: normal saline 1000ml 1,000 ML IV SCH ×2 (05:53→15:51)
[2021-07-18 06:35] LABS: MAGNESIUM 2.3 MG/DL (1.5-2.4); POTASSIUM 3.7 MMOL/L (3.5-5.1)
--- NOTE | 2021-07-18 07:07 | NUR ---
Patient in room CICU 2011. I have received report from Jaime LAZAR and had the opportunity to ask questions and assume patient care.
[2021-07-18] MEDS ORDERED: K and/or MAG REPLACEMENT MC SCH (08:00)
[2021-07-18] MEDS ORDERED: DOLUTEGRAVIR 50 MG PO SCH (08:00)
[2021-07-18] MEDS ORDERED: Emtricitabine/Tenofov Alafenam (Descovy 200-25 mg Tablet) PO SCH (08:00)
[2021-07-18] MEDS ORDERED: tetrahydrozoline 0.05% 15ml ophthalmic drops EACHEYE SCH (08:00)
[2021-07-18] MEDS ORDERED: sulfamethoxazole/trimethoprim DS (800/160mg) tablet PO SCH (08:00)
[2021-07-18] MEDS: LACOSAMIDE 50 MG TABLET PO SCH (08:53)
[2021-07-18] MEDS: levetiracetam 250mg tablet PO SCH ×3 (08:53→17:17)
[2021-07-18 11:26] LABS: ALANINE AMINOTRANSFERASE 202 U/L (12-78); ALBUMIN 2.9 G/DL (3.4-5.0); ALBUMIN/GLOBULIN RATIO 1.1 (1.1-1.5); ALKALINE PHOSPHATASE 48 IU/L (46-116); ANION GAP 10 (8-16); ASPARTATE AMINO TRANSFERASE 643 U/L (10-37); BILIRUBIN,TOTAL 0.8 MG/DL (0.1-1.0); BLOOD UREA NITROGEN 27 MG/DL (7-18); BUN/CREATININE RATIO 26.5 (5.4-32.0); CHLORIDE 108 MMOL/L (99-107); CREATININE 1.02 MG/DL (0.60-1.10); GLUCOSE 72 MG/DL (70-104); POTASSIUM 3.8 MMOL/L (3.5-5.1); SODIUM 140 MMOL/L (135-145); TOTAL CARBON DIOXIDE 22.4 MMOL/L (24-32); TOTAL PROTEIN 5.6 G/DL (6.4-8.2); eGFR 74 ML/MIN
[2021-07-18 11:47] LABS: CREATINE KINASE 26069 U/L (39-308)
[2021-07-18] MEDS ORDERED: LORazepam 2 mg/ml vial IV ONE (13:20)
--- NOTE | 2021-07-18 18:31 | NUR ---
Problems reprioritized. Patient report given, questions answered & plan of care reviewed with Radha LAZAR, patient leaving AMA. We have educated him on why we dont think its safe for him to leave and also the risks of leaving as well as the signs to look for with associated risks, patient is a&ox4, and states he understand the risks for leaving against medical advice.
--- NOTE | 2021-07-18 18:45 | NUR ---
Dr. Walsl at patient bedside speaking with patient about AMA risk.
--- NOTE | 2021-07-18 19:06 | NUR ---
Pt left facility AMA, escorted per security. Alert and oriented X's 4. Denies any pain or any discomfort. Ambulatory, gait steady.
[2021-07-18] MEDS ORDERED: lactobacillus rhamnosus 10,000 MMU CELLS/CAPSULE PO SCH (20:00)
== END 2021-07-18 19:05 | disposition left against medical advice (07) | DRG 53 ==
LOC: ER 08:04 → ED HOLD 12:53 → CICU 2S 14:50
PROVIDERS: ADMIT Surgery; ATTEND Surgery
DX: G40.909 Epilepsy, unspecified, not intractable, without status epilepticus (principal); G93.41 Metabolic encephalopathy; E87.2 Acidosis; R68.0 Hypothermia, not associated with low environmental temperature; B19.20 Unspecified viral hepatitis C without hepatic coma; G89.29 Other chronic pain; M54.9 Dorsalgia, unspecified; R44.3 Hallucinations, unspecified; Z53.29 Procedure and treatment not carried out because of patient's decision for other reasons; Z23 Encounter for immunization; Z87.891 Personal history of nicotine dependence; Z88.8 Allergy status to other drugs, medicaments and biological substances; Z79.899 Other long term (current) drug therapy
CPT/HCPCS: 36415; 70450; 71045; 80053; 80305; 80320; 81001; 82140; 82550; 83605; 83735; 84132; 84145; 85025; 87088; 93005; 96365; 96366; 96368; 96375; 97110; 97116; 97163; 99291; 99292; G0378; J0696; J1953; J2060; J3475; J3490; J7030

== ENCOUNTER 2021-08-05 15:45 | Emergency (ER) | payer MEDICAID ==
[~2021-08-05] VITALS: Ht 170.2 cm; Wt 68.6 kg
[~2021-08-05 15:45] MED LIST changes: -FLUT16SP2 BOTHNARES; -HYDR-3964 PO; -IBUP-1985 PO; +LACO150T2 PO
[2021-08-05 15:53] VITALS: BP 124/82
[2021-08-06] MEDS ORDERED: iohexol 350MG/ML 100ml bottle IV ONE (11:28)
[2021-08-06] MEDS ORDERED: SULF1TAB45 PO (15:22)
[2021-08-06] MEDS ORDERED: DOLU50TA PO (15:22)
[2021-08-06] MEDS ORDERED: EMTR1TAB18 PO (15:22)
[2021-08-06] MEDS ORDERED: ERGO500054 PO (15:22)
[2021-08-06] MEDS ORDERED: OLOP2.5D12 OP (15:22)
[2021-08-06] MEDS ORDERED: ASPI-1264 PO (21:04)
[2021-08-06] MEDS ORDERED: FLUT16SP BOTHNARES (21:14)
== END 2021-08-06 03:14 | disposition left against medical advice (07) ==
LOC: ER 15:45
DX: L60.8 Other nail disorders (principal); G89.29 Other chronic pain; Z86.69 Personal history of other diseases of the nervous system and sense organs; Z86.19 Personal history of other infectious and parasitic diseases; Z72.89 Other problems related to lifestyle; Z91.018 Allergy to other foods; Z79.2 Long term (current) use of antibiotics; Z79.899 Other long term (current) drug therapy
CPT/HCPCS: 73660; 93922; 99283; Q9967

== ENCOUNTER 2021-08-06 10:02 | Inpatient (IN) | payer MEDICAID ==
[~2021-08-06] VITALS: Ht 170.2 cm; Wt 70.1 kg
[2021-08-06 10:58] LABS: BASOPHILS % (AUTO) 0.5 % (0-1); EOSINOPHILS # (AUTO) 0.1 X10'3 (0-0.9); EOSINOPHILS % (AUTO) 2.7 % (0-6); HEMATOCRIT 34.4 % (42.0-52.0); HEMOGLOBIN 11.4 g/dl (14.0-17.9); LYMPHOCYTES # (AUTO) 1.2 X10'3 (1.1-4.8); LYMPHOCYTES % (AUTO) 22.3 % (21-51); MEAN CORPUSCULAR HEMOGLOBIN 32.9 PG (27.0-31.0); MEAN CORPUSCULAR HGB CONC 33.1 g/dL (33.0-36.5); MEAN CORPUSCULAR VOLUME 99.3 FL (78-98); MEAN PLATELET VOLUME 6.3 FL (7.4-10.4); MONOCYTES # (AUTO) 0.6 X10'3 (0-0.9); MONOCYTES % (AUTO) 11.1 % (2-12); NEUTROPHILS # (AUTO) 3.4 X10'3 (1.8-7.7); NEUTROPHILS % (AUTO) 63.4 % (42-75); PLATELET COUNT 290 X10'3 (140-440); RED BLOOD COUNT 3.46 X10'6 (4.70-6.10); RED CELL DISTRIBUTION WIDTH 15.1 % (11.5-14.5); WHITE BLOOD COUNT 5.4 X10'3 (4.5-11.0)
[2021-08-06 11:07] LABS: ALANINE AMINOTRANSFERASE 40 U/L (12-78); ALBUMIN 3.6 G/DL (3.4-5.0); ALKALINE PHOSPHATASE 98 IU/L (46-116); ANION GAP 7 (8-16); ASPARTATE AMINO TRANSFERASE 29 U/L (10-37); BILIRUBIN,TOTAL 0.3 MG/DL (0.1-1.0); BLOOD UREA NITROGEN 24 MG/DL (7-18); BUN/CREATININE RATIO 24.2 (5.4-32.0); CALCIUM 8.6 MG/DL (8.5-10.1); CHLORIDE 101 MMOL/L (99-107); CREATININE 0.99 MG/DL (0.60-1.10); GLUCOSE 97 MG/DL (70-104); POTASSIUM 4.8 MMOL/L (3.5-5.1); SODIUM 135 MMOL/L (135-145); TOTAL CARBON DIOXIDE 26.9 MMOL/L (24-32); TOTAL PROTEIN 7.1 G/DL (6.4-8.2); eGFR 77 ML/MIN
[2021-08-06] MEDS ORDERED: heparin 10,000 units/1 ML INJ IV ONE ×3 (13:30→15:05)
[2021-08-06] MEDS ORDERED: potassium Cl 20 mEq SR tablet PO PRN ×2 (15:05)
[2021-08-06] MEDS ORDERED: acetaminophen 325mg tablet PO PRN ×2 (15:05)
[2021-08-06] MEDS ORDERED: heparin 25,000 UNIT/250ml bag 250 ML IV SCH (15:05)
[2021-08-06] MEDS ORDERED: HYDROcodone/acetaminophen 10/325mg tab PO PRN (15:05)
[2021-08-06] MEDS ORDERED: HYDROcodone/acetaminophen 5mg/325mg tablet PO PRN (15:05)
[2021-08-06] MEDS ORDERED: ondansetron/PF 4mg/2ml inj IV PRN (15:05)
[2021-08-06] MEDS ORDERED: mag hydrox/Alum hydrox/simeth 30ml oral suspension PO PRN (15:05)
[2021-08-06] MEDS ORDERED: magnesium Cl slow-release 64mg tablet PO PRN (15:05)
[2021-08-06] MEDS ORDERED: magnesium 4gm in 100ml NS 100 ML IV PRN (15:05)
[2021-08-06] MEDS ORDERED: heparin 10,000 units/1 ML INJ IV PRN (15:05)
[2021-08-06] MEDS ORDERED: magnesium 2GM in 50ml NS 50 ML IV PRN (15:05)
[2021-08-06] MEDS ORDERED: potassium CL 10mEq/100ml bag 100 ML IV PRN (15:05)
[2021-08-06] MEDS ORDERED: morphine 2 MG/ML inj. syringe IV PRN ×2 (15:05)
[2021-08-06] MEDS ORDERED: ERGO500054 PO (15:22)
[2021-08-06] MEDS ORDERED: DOLU50TA PO (15:22)
[2021-08-06] MEDS ORDERED: EMTR1TAB18 PO (15:22)
[2021-08-06] MEDS ORDERED: OLOP2.5D12 OP (15:22)
[2021-08-06] MEDS ORDERED: SULF1TAB45 PO (15:22)
[2021-08-06] MEDS: heparin 25,000 UNIT/250ml bag 250 ML IV SCH (16:22)
[2021-08-06] MEDS: normal saline 1000ml 1,000 ML IV SCH (16:30)
--- NOTE | 2021-08-06 18:34 | NUR ---
Report attempted, RN to call back after shift change report.
--- NOTE | 2021-08-06 18:50 | NUR ---
Report attempted, still unable to give RN report
--- NOTE | 2021-08-06 19:25 | NUR ---
Patient in room GILES 357. I have received report from CADY Francis and had the opportunity to ask questions and assume patient care.
--- NOTE | 2021-08-06 19:45 | NUR ---
pt arrived via gurney. settled into bed.
[2021-08-06 19:50] VITALS: BP 104/76
[2021-08-06] MEDS: K and/or MAG REPLACEMENT MC SCH (20:00)
--- NOTE | 2021-08-06 20:38 | NUR ---
pt has had all 3 covid vaccines. does not know dates
[2021-08-06] MEDS: EMTRICITABINE PO SCH (21:00)
[2021-08-06] MEDS: DOLUTEGRAVIR 50 MG PO SCH (21:00)
[2021-08-06] MEDS: TENOFOVIR ALAFENAMIDE PO SCH (21:00)
[2021-08-06] MEDS ORDERED: temazepam 15mg capsule PO PRN (21:00)
[2021-08-06] MEDS ORDERED: ASPI-1264 PO (21:04)
[2021-08-06] MEDS ORDERED: FLUT16SP BOTHNARES (21:14)
[2021-08-06] MEDS ORDERED: levetiracetam 250mg tablet PO SCH (22:30)
[2021-08-06] MEDS: LACOSAMIDE 50 MG TABLET PO SCH (22:56)
[2021-08-06] MEDS: sulfamethoxazole/trimethoprim DS (800/160mg) tablet PO SCH (23:04)
[2021-08-06] MEDS ORDERED: levetiracetam 250mg tablet PO ONE (23:20)
[2021-08-07] VITALS: BP 114/80
[2021-08-07] MEDS: normal saline 1000ml 1,000 ML IV SCH ×3 (01:33→20:37)
[2021-08-07] MEDS: heparin 10,000 units/1 ML INJ IV PRN ×2 (01:38→17:07)
[2021-08-07 03:33] VITALS: BP 104/76
--- NOTE | 2021-08-07 06:45 | NUR ---
Problems reprioritized. Patient report given, questions answered & plan of care reviewed with CADY Hutson.
[2021-08-07 07:10] LABS: BASOPHILS % (AUTO) 0.6 % (0-1); EOSINOPHILS # (AUTO) 0.2 X10'3 (0-0.9); EOSINOPHILS % (AUTO) 4.4 % (0-6); HEMATOCRIT 33.3 % (42.0-52.0); HEMOGLOBIN 11.2 g/dl (14.0-17.9); LYMPHOCYTES # (AUTO) 0.8 X10'3 (1.1-4.8); LYMPHOCYTES % (AUTO) 19.4 % (21-51); MEAN CORPUSCULAR HEMOGLOBIN 33.4 PG (27.0-31.0); MEAN CORPUSCULAR HGB CONC 33.5 g/dL (33.0-36.5); MEAN CORPUSCULAR VOLUME 99.5 FL (78-98); MEAN PLATELET VOLUME 6.8 FL (7.4-10.4); MONOCYTES # (AUTO) 0.4 X10'3 (0-0.9); MONOCYTES % (AUTO) 10.3 % (2-12); NEUTROPHILS # (AUTO) 2.6 X10'3 (1.8-7.7); NEUTROPHILS % (AUTO) 65.3 % (42-75); PLATELET COUNT 242 X10'3 (140-440); RED BLOOD COUNT 3.34 X10'6 (4.70-6.10); RED CELL DISTRIBUTION WIDTH 15.4 % (11.5-14.5)
[2021-08-07 07:27] LABS: ALANINE AMINOTRANSFERASE 36 U/L (12-78); ALBUMIN 3.1 G/DL (3.4-5.0); ALKALINE PHOSPHATASE 91 IU/L (46-116); ANION GAP 8 (8-16); ASPARTATE AMINO TRANSFERASE 24 U/L (10-37); BILIRUBIN,TOTAL 0.3 MG/DL (0.1-1.0); BLOOD UREA NITROGEN 22 MG/DL (7-18); BUN/CREATININE RATIO 24.4 (5.4-32.0); CALCIUM 8.5 MG/DL (8.5-10.1); CHLORIDE 106 MMOL/L (99-107); GLUCOSE 101 MG/DL (70-104); POTASSIUM 4.5 MMOL/L (3.5-5.1); SODIUM 140 MMOL/L (135-145); TOTAL CARBON DIOXIDE 25.9 MMOL/L (24-32); TOTAL PROTEIN 6.3 G/DL (6.4-8.2); eGFR 86 ML/MIN
[2021-08-07 08:00] VITALS: BP 143/91
[2021-08-07] MEDS: K and/or MAG REPLACEMENT MC SCH ×2 (08:00→20:00)
[2021-08-07] MEDS: naphazoline/pheniramine eye 1 DROP BOTTLE EACHEYE SCH ×2 (08:00→08:38)
[2021-08-07] MEDS ORDERED: levetiracetam 250mg tablet PO SCH (08:00)
[2021-08-07] MEDS ORDERED: LACOSAMIDE 50 MG TABLET PO SCH (08:00)
[2021-08-07] MEDS ORDERED: sulfamethoxazole/trimethoprim DS (800/160mg) tablet PO SCH (08:00)
[2021-08-07] MEDS: LACOSAMIDE 50 MG TABLET PO SCH ×2 (08:37→20:30)
[2021-08-07] MEDS: levetiracetam 250mg tablet PO SCH ×2 (08:38→20:29)
[2021-08-07] MEDS: heparin 25,000 UNIT/250ml bag 250 ML IV SCH (08:50)
--- NOTE | 2021-08-07 09:22 | NUR ---
Called lab to follow up with DVT PTT result that was still pending at this time.The staff I spoke to said he will let someone from the lab know
[2021-08-07 11:00] VITALS: BP 134/81
[2021-08-07] MEDS ORDERED: FLU VACC QS2021-22(6MOS UP)/PF 60 MCG/0.5 ML SYRINGE IM ONE (12:10)
--- NOTE | 2021-08-07 15:38 | NUR ---
Patient has medications from home brought by his friend as per his request. All home meds brought were sent to our hospital pharmacy.
--- NOTE | 2021-08-07 18:34 | NUR ---
Problems reprioritized. Patient report given, questions answered & plan of care reviewed with Merna LAZAR.
[2021-08-07 20:00] VITALS: BP 129/78
[2021-08-07] MEDS: TENOFOVIR ALAFENAMIDE PO SCH (20:33)
[2021-08-07] MEDS: EMTRICITABINE PO SCH (20:33)
[2021-08-07] MEDS: DOLUTEGRAVIR 50 MG PO SCH (20:34)
[2021-08-07] MEDS: sulfamethoxazole/trimethoprim DS (800/160mg) tablet PO SCH (20:34)
[2021-08-08] VITALS: BP 121/64
[2021-08-08] MEDS: heparin 25,000 UNIT/250ml bag 250 ML IV SCH (00:25)
[2021-08-08 07:00] VITALS: BP 109/69
[2021-08-08] MEDS: normal saline 1000ml 1,000 ML IV SCH (07:05)
--- NOTE | 2021-08-08 07:22 | NUR ---
Patient in room GILES 357. I have received report from Merna LAZAR and had the opportunity to ask questions and assume patient care.
[2021-08-08 07:33] LABS: BASOPHILS % (AUTO) 0.7 % (0-1); EOSINOPHILS # (AUTO) 0.2 X10'3 (0-0.9); EOSINOPHILS % (AUTO) 4.4 % (0-6); HEMATOCRIT 35.2 % (42.0-52.0); LYMPHOCYTES # (AUTO) 0.6 X10'3 (1.1-4.8); LYMPHOCYTES % (AUTO) 18.1 % (21-51); MEAN CORPUSCULAR HEMOGLOBIN 33.8 PG (27.0-31.0); MEAN CORPUSCULAR HGB CONC 34.2 g/dL (33.0-36.5); MEAN CORPUSCULAR VOLUME 98.9 FL (78-98); MEAN PLATELET VOLUME 6.8 FL (7.4-10.4); MONOCYTES # (AUTO) 0.4 X10'3 (0-0.9); MONOCYTES % (AUTO) 10.3 % (2-12); NEUTROPHILS # (AUTO) 2.4 X10'3 (1.8-7.7); NEUTROPHILS % (AUTO) 66.5 % (42-75); PLATELET COUNT 212 X10'3 (140-440); RED BLOOD COUNT 3.56 X10'6 (4.70-6.10); RED CELL DISTRIBUTION WIDTH 15.2 % (11.5-14.5); WHITE BLOOD COUNT 3.6 X10'3 (4.5-11.0)
[2021-08-08 07:41] LABS: ALANINE AMINOTRANSFERASE 34 U/L (12-78); ALBUMIN 3.4 G/DL (3.4-5.0); ALKALINE PHOSPHATASE 100 IU/L (46-116); ANION GAP 8 (8-16); ASPARTATE AMINO TRANSFERASE 22 U/L (10-37); BILIRUBIN,TOTAL 0.3 MG/DL (0.1-1.0); BLOOD UREA NITROGEN 16 MG/DL (7-18); BUN/CREATININE RATIO 18.4 (5.4-32.0); CALCIUM 8.8 MG/DL (8.5-10.1); CHLORIDE 105 MMOL/L (99-107); CREATININE 0.87 MG/DL (0.60-1.10); GLUCOSE 113 MG/DL (70-104); SODIUM 138 MMOL/L (135-145); TOTAL CARBON DIOXIDE 24.6 MMOL/L (24-32); TOTAL PROTEIN 6.7 G/DL (6.4-8.2); eGFR 89 ML/MIN
[2021-08-08] MEDS: naphazoline/pheniramine eye 1 DROP BOTTLE EACHEYE SCH (08:00)
[2021-08-08] MEDS: K and/or MAG REPLACEMENT MC SCH (08:00)
[2021-08-08] MEDS: levetiracetam 250mg tablet PO SCH (08:01)
[2021-08-08] MEDS: LACOSAMIDE 50 MG TABLET PO SCH (08:01)
--- NOTE | 2021-08-08 08:15 | NUR ---
Patients PTT Therapeutic 69 no changes made.. Next draw at 1400
[2021-08-08] MEDS ORDERED: TIVICAY (DOLUTEGRAVIR) 50MG TABLET PO SCH (09:06)
[2021-08-08] MEDS ORDERED: EMTRICITABINE PO SCH (09:07)
[2021-08-08] MEDS ORDERED: TENOFOVIR ALAFENAMIDE PO SCH (09:07)
[2021-08-08] MEDS ORDERED: AMOX-419 PO (10:49)
[2021-08-08 12:00] VITALS: BP 135/92
--- NOTE | 2021-08-08 12:41 | NUR ---
PAGER ID: [phone] MESSAGE: Nicole-Surg [phone] Re: Megha Maya please call need to verify discharge with you please.
--- NOTE | 2021-08-08 13:39 | NUR ---
Dr Ortez rounded and would like to have patient have an Echo for questioning Ventricular thrombus prior to discharge and contact Dr Cordero with results.
--- NOTE | 2021-08-08 14:36 | NUR ---
PAGER ID: [phone] MESSAGE: Nicole-Surg [phone] Re: [id number] Megha please call Dr Ortez ordered ECHO prior to discharge and he wants me to call you
--- NOTE | 2021-08-08 14:43 | NUR ---
Dr Cordero called back is aware patient had the ECHO and the ( tech) stated he did not see a thrombus, no endocarditis, EF 70%, and did see trace pleural effusions bilaterally. The Official report by won't be available until approx 1700. Dr Packer will contact Dr Ortez and call me back. Dr Cordero called back stated ok for patient to be discharged and to follow up with his primary MD and Dr Perez in 1 week and to go to the wound clinic for wound follow up.
--- NOTE | 2021-08-08 15:15 | NUR ---
Jaki with case management is working on setting up appointment for patient for wound care. Jaki will have wound care call him regarding appointment. Patients phone number is [phone] patient states to leave a message he screens his phone calls.
--- NOTE | 2021-08-08 16:40 | NUR ---
Patient discharge reviewed with patient and patient verbalized understanding. Patients IV dc'd cannula intact. Patients home medications returned to [facility]. [facility] to give him a ride [facility]. Patient is aware if he does not receive a call Wednesday for appt with wound care he is to call case management, phone number provided.
== END 2021-08-08 15:44 | disposition home or self-care (01) | DRG 197 ==
LOC: ER 10:03 → ED HOLD 15:09 → SUR 3N 19:45
PROVIDERS: ADMIT Internal Medicine; ATTEND Internal Medicine
PROC: B42F1ZZ Computerized Tomography (CT Scan) of Right Lower Extremity Arteries using Low Osmolar Contrast (ICD-10-PCS; 2021-08-06)
PROC: 3E02340 Introduction of Influenza Vaccine into Muscle, Percutaneous Approach (ICD-10-PCS; principal; 2021-08-07)
DX: I70.201 Unspecified atherosclerosis of native arteries of extremities, right leg (principal); B19.20 Unspecified viral hepatitis C without hepatic coma; F12.90 Cannabis use, unspecified, uncomplicated; G40.909 Epilepsy, unspecified, not intractable, without status epilepticus; Z20.822 Contact with and (suspected) exposure to COVID-19; G89.29 Other chronic pain; Z21 Asymptomatic human immunodeficiency virus [HIV] infection status; M54.9 Dorsalgia, unspecified; X31.XXXA Exposure to excessive natural cold, initial encounter; Z23 Encounter for immunization; Z91.018 Allergy to other foods; Z79.899 Other long term (current) drug therapy; Z79.82 Long term (current) use of aspirin
CPT/HCPCS: 36415; 71045; 73706; 80053; 83605; 85025; 85730; 87040; 87081; 87635; 93005; 93306; 97116; 97161; 97530; 99285; G0378; J1644; J7030

== ENCOUNTER 2023-02-02 05:24 | Inpatient (IN) | payer MEDICAID ==
[2023-01-28 14:51] LABS: BASOPHILS % (AUTO) 0.6 % (0-1); EOSINOPHILS # (AUTO) 0.3 X10'3 (0-0.9); EOSINOPHILS % (AUTO) 3.9 % (0-6); LYMPHOCYTES # (AUTO) 1.3 X10'3 (1.1-4.8); LYMPHOCYTES % (AUTO) 16.6 % (21-51); MEAN CORPUSCULAR HEMOGLOBIN 31.9 PG (27.0-31.0); MEAN CORPUSCULAR HGB CONC 33.1 g/dL (33.0-36.5); MEAN CORPUSCULAR VOLUME 96.4 FL (78-98); MONOCYTES # (AUTO) 0.7 X10'3 (0-0.9); MONOCYTES % (AUTO) 8.7 % (2-12); NEUTROPHILS # (AUTO) 5.5 X10'3 (1.8-7.7); NEUTROPHILS % (AUTO) 70.2 % (42-75); PRE OP HEMATOCRIT 44.9 % (42.0-52.0); PRE OP HEMOGLOBIN 14.8 g/dL (14.0-17.9); PRE OP PLATELET COUNT 211 X10'3 (140-440); RED BLOOD COUNT 4.65 X10'6 (4.70-6.10); RED CELL DISTRIBUTION WIDTH 13.3 % (11.5-14.5)
[2023-01-28 15:08] LABS: ALBUMIN 4.2 G/DL (3.4-5.0); ALBUMIN/GLOBULIN RATIO 1.2 (1.1-1.5); ALKALINE PHOSPHATASE 80 IU/L (46-116); BLOOD UREA NITROGEN 20 MG/DL (7-18); BUN/CREATININE RATIO 18.7 (10.0-20.0); CALCIUM 9.3 MG/DL (8.5-10.1); CHLORIDE 101 MMOL/L (99-107); CREATININE 1.07 MG/DL (0.60-1.10); PRE OP ALT 32 U/L (30-65); PRE OP ANION GAP 9 (8-16); PRE OP AST 25 U/L (10-37); PRE OP BILIRUB, TOTAL 0.3 MG/DL (0.0-1.0); PRE OP GLUCOSE 90 MG/DL (70-104); PRE OP SODIUM 139 MMOL/L (135-145); TOTAL CARBON DIOXIDE 28.9 MMOL/L (24-32); TOTAL PROTEIN 7.6 G/DL (6.4-8.2); eGFR 70 ML/MIN
[~2023-02-02] VITALS: Ht 170.2 cm; Wt 71.3 kg
[2023-02-02] VITALS (29 sets, daily range): BP systolic 122–161; BP diastolic 86–111
[~2023-02-02 05:24] MED LIST changes: +ALBU90AE2 PO; +ASPI-1264 PO; +CHOL500050 PO; +DICL100G30 TOP; -ERGO500054 PO; +FLUT16SP BOTHNARES; -SULF1TAB45 PO; +ringers solution, lacted 1,000 ML IV SCH
[2023-02-02] MEDS ORDERED: famotidine 20mg tablet PO ONE (05:30)
[2023-02-02] MEDS ORDERED: vancomycin 1,500 MG in NS 300ml IV soln IV ONE (05:30)
[2023-02-02] MEDS ORDERED: tranexamic acid 650mg tablet PO ONE (05:30)
[2023-02-02] MEDS ORDERED: cefazolin 2gm/D5W 100mL 100 ML IV ONE (05:30)
--- NOTE | 2023-02-02 05:30 | NUR ---
CSM: PULSES PRESENT. PATIENT DID USE MUPIROCIN CREAM. VIDEO WAS NOT WATCHED. EDUCATED PATIENT ON THE USE OF THE INCENTIVE SPIROMETER AND ITS IMPORTANCE.
[2023-02-02] MEDS ORDERED: ROPIVAcaine 0.5% (5mg/ml) 30ml vial ONE ×2 (06:46→07:23)
[2023-02-02] MEDS ORDERED: ketorolac trometh. 30mg/ml inj. ONE (06:46)
[2023-02-02] MEDS ORDERED: ePHEDrine 50MG/ML INJ. ONE (07:20)
[2023-02-02] MEDS ORDERED: MIDAZolam 1 MG/ML 5ML VIAL ONE (07:20)
[2023-02-02] MEDS ORDERED: fentaNYL/PF 50MCG/1 ML 2ML syringe ONE (07:20)
[2023-02-02] MEDS ORDERED: sevoflurane 250ml liquid IH ONE (07:20)
[2023-02-02] MEDS ORDERED: LIDOcaine 1%/PF 5ML 10 MG/ML VIAL ONE (07:21)
[2023-02-02] MEDS ORDERED: propofol inj 20 ML IV ONE (07:21)
[2023-02-02] MEDS ORDERED: dexamethasone sod phosphate 4mg/ml inj. ONE (07:23)
[2023-02-02 07:34] LABS: APTT 29 SECONDS (22-32)
[2023-02-02] MEDS ORDERED: ROPIVAcaine 0.2%/PF PUMP/bolus 545 ML INTERSCALE SCH (08:30)
[2023-02-02] MEDS ORDERED: ondansetron/PF 4mg/2ml inj IV PRN ×2 (08:30→09:35)
[2023-02-02] MEDS ORDERED: ROPIVAcaine 0.2% (10 MG/5 ML) BOLUS INJECTION INTERSCALE PRN (08:30)
[2023-02-02] MEDS ORDERED: morphine 2 MG/ML inj. syringe IV PRN (08:30)
[2023-02-02] MEDS ORDERED: proCHLORperazine 10 MG/2 ml inj IV PRN (08:30)
[2023-02-02] MEDS ORDERED: morphine 4 MG/ML inj SYRINge IV PRN (08:30)
[2023-02-02] MEDS ORDERED: ringers solution, lacted 1,000 ML IV SCH (08:30)
[2023-02-02] MEDS ORDERED: ondansetron/PF 4mg/2ml inj ONE (09:03)
--- NOTE | 2023-02-02 09:14 | NUR ---
Received from OR via BED, accompanied by Anesthesiologist DR. TELLO and report given by Anesthesiolgist. PT RESPONSIVE, DENIES PAIN. WILL CONTINUE TO MONTIOR AND TREAT NEEDED. BREATHING EASILY W/ MASK AT 10 LPM SAO2 98%; VSS; ISLAND DRESSING TO L SHOULDER. ARM IN SLING, UNABLE TO MOVE FINGERS OF L HAND; HX HEPATITIS C, HIV + Addendum: 02/02/23 at 0905 by Syeda Wick RN Amended: Links added.
[2023-02-02] MEDS ORDERED: magnesium hydroxide 30ml (MOM) UD suspension PO PRN (09:35)
[2023-02-02] MEDS ORDERED: oxyCODONE IR 5mg (immed. release) tablet PO PRN ×2 (09:35)
[2023-02-02] MEDS ORDERED: bisacodyl 10mg suppository rectal RC PRN (09:35)
[2023-02-02] MEDS ORDERED: HYDROcodone/acetaminophen 10/325mg tab PO PRN ×2 (09:35)
[2023-02-02] MEDS ORDERED: potassium cl 20mEq in 1/2 NS 1,000 ML IV SCH (09:35)
[2023-02-02] MEDS ORDERED: HYDROmorphone inj. 0.5 MG/0.5 ML DISP.SYRIN IV PRN (09:35)
[2023-02-02] MEDS ORDERED: tetrahydrozoline 0.05% 15ml ophthalmic drops EACHEYE PRN (09:35)
[2023-02-02] MEDS ORDERED: naloxone 0.4 mg/ml inj IV PRN (09:35)
[2023-02-02] MEDS ORDERED: HYDROmorphone 1 mg/ml syringe IV PRN (09:35)
[2023-02-02] MEDS ORDERED: albuterol 2.5 MG/3 ML nebule NEB PRN (09:35)
[2023-02-02] MEDS ORDERED: diphenhydrAMINE 25mg capsule PO PRN ×2 (09:35)
[2023-02-02] MEDS ORDERED: acetaminophen 325mg tablet PO PRN (09:35)
[2023-02-02] MEDS ORDERED: levetiracetam 250mg tablet PO SCH (10:15)
[2023-02-02] MEDS: LACOSAMIDE 50 MG TABLET PO SCH ×2 (10:15→21:36)
[2023-02-02] MEDS ORDERED: Emtricitabine/Tenofov Alafenam (Descovy 200-25 mg Tablet) PO SCH ×2 (10:15→21:00)
--- NOTE | 2023-02-02 13:13 | NUR ---
TC TO DR HENSON RE: DIASTOLIC B/P RUNNING 100 +/- 2 THROUGHOUT RR STAY; NOW 104; REPORTED SYSTOLIC B/P RANGE. STATES "THERE IS NOTHING TO BE DONE" SUGGESTED REPOSITING CUFF - RECHECK 128/90
--- NOTE | 2023-02-02 13:48 | NUR ---
Patient in room PAS IN 900. I have received report from Angeline Castro in recovery and had the opportunity to ask questions and assume patient care.
--- NOTE | 2023-02-02 14:25 | NUR ---
PATIENT TAKEN TO ROOM WITH ALL BELONGINGS AND HOOKED UP TO MONITORS IN ROOM AND GIVEN CALL LIGHT, REPORT GIVEN TO CRISTIANE LAZAR WHO HAS TAKEN OVER PATIENT CARE. OFF MONITOR AT 1245. PT HAS VOIDED MULTIPLE TIMES TOTALLING 1475 ML. DRINKING FLUIDS AD JAYSON - AT LEAST 700 ML. VERBAL REPORT TO [facility]. Addendum: 02/02/23 at 1433 by Syeda Wick RN Amended: Links added.
[2023-02-02] MEDS: potassium cl 20mEq in 1/2 NS 1,000 ML IV SCH (14:39)
[2023-02-02] MEDS: acetaminophen 325mg tablet PO SCH ×2 (14:46→20:00)
[2023-02-02] MEDS: ceFAZolin/D5W- 1GM premix 50 ML IV SCH (16:21)
--- NOTE | 2023-02-02 18:27 | NUR ---
Problems reprioritized. Patient report given, questions answered & plan of care reviewed with Sarah.
[2023-02-02] MEDS ORDERED: vancomycin/NS 1 GM ADD-VANTAGE 250 ML IV SCH (20:00)
[2023-02-02] MEDS ORDERED: sennosides 8.6mg tablet PO SCH (21:00)
[2023-02-02] MEDS: levetiracetam 250mg tablet PO SCH (21:38)
[2023-02-03] MEDS: ceFAZolin/D5W- 1GM premix 50 ML IV SCH (01:22)
[2023-02-03] MEDS: potassium cl 20mEq in 1/2 NS 1,000 ML IV SCH ×2 (01:34→03:00)
[2023-02-03] MEDS: acetaminophen 325mg tablet PO SCH ×2 (02:00→08:44)
[2023-02-03 06:00] VITALS: BP 159/118
[2023-02-03 07:00] LABS: BASOPHILS # (AUTO) 0.1 X10'3 (0-0.2); BASOPHILS % (AUTO) 0.4 % (0-1); EOSINOPHILS # (AUTO) 0.1 X10'3 (0-0.9); EOSINOPHILS % (AUTO) 0.7 % (0-6); HEMATOCRIT 46.8 % (42.0-52.0); HEMOGLOBIN 15.5 g/dl (14.0-17.9); LYMPHOCYTES # (AUTO) 1.1 X10'3 (1.1-4.8); LYMPHOCYTES % (AUTO) 8.8 % (21-51); MEAN CORPUSCULAR HEMOGLOBIN 31.8 PG (27.0-31.0); MEAN CORPUSCULAR VOLUME 96.2 FL (78-98); MEAN PLATELET VOLUME 7.2 FL (7.4-10.4); MONOCYTES # (AUTO) 1.3 X10'3 (0-0.9); MONOCYTES % (AUTO) 10.8 % (2-12); NEUTROPHILS # (AUTO) 9.7 X10'3 (1.8-7.7); NEUTROPHILS % (AUTO) 79.3 % (42-75); PLATELET COUNT 214 X10'3 (140-440); RED BLOOD COUNT 4.87 X10'6 (4.70-6.10); RED CELL DISTRIBUTION WIDTH 13.7 % (11.5-14.5); WHITE BLOOD COUNT 12.3 X10'3 (4.5-11.0)
--- NOTE | 2023-02-03 07:00 | NUR ---
Patient in room ORTHO 4014. I have received report from Sarah LAZAR and had the opportunity to ask questions and assume patient care.
[2023-02-03 07:11] LABS: ANION GAP 9 (8-16); CHLORIDE 102 MMOL/L (99-107); POTASSIUM 4.1 MMOL/L (3.5-5.1); SODIUM 138 MMOL/L (135-145); TOTAL CARBON DIOXIDE 27.5 MMOL/L (24-32)
--- NOTE | 2023-02-03 07:17 | NUR ---
Problems reprioritized. Patient report given, questions answered & plan of care reviewed with NADIR KENNEDY.
[2023-02-03] MEDS ORDERED: cholecalciferol (vitamin D3) 1,000 unit (25mcg) tablet PO SCH (08:00)
[2023-02-03] MEDS ORDERED: aspirin 325mg tablet PO SCH (08:30)
[2023-02-03] MEDS: LACOSAMIDE 50 MG TABLET PO SCH (08:44)
[2023-02-03] MEDS: levetiracetam 250mg tablet PO SCH (08:45)
[2023-02-03 10:00] VITALS: BP 145/110
[2023-02-03 11:15] VITALS: BP 145/108
[2023-02-03] MEDS ORDERED: ketorolac tromethamine 15mg/ml inj. IV ONE (11:20)
[2023-02-03 11:25] VITALS: BP 140/120
--- NOTE | 2023-02-03 12:00 | NUR ---
Advised Concepción emerson about patient BP and HR. Concepción spoke with Dr. Mccall and he okayed patient BP. Dr. Mccall was notified about patient BP and HR readings since post vitals. Per Dr. Mccall patient is to follow up with PCP to get BP under control. Patient is aware.
--- NOTE | 2023-02-03 12:43 | NUR ---
Joint surgery consult: Pt s/p L shoulder surgery this admit per EMR. Pt seen by ANITA at bedside for written/verbal high protein diet ed w/ RD contact information provided. ANITA encouraged pt to contact dietitian's office if further nutrition questions/concerns. Addendum: 02/03/23 at [address] Amended: Links added.
[2023-02-03] MEDS ORDERED: ketorolac tromethamine 15mg/ml inj. IV SCH (14:00)
--- NOTE | 2023-02-03 14:00 | NUR ---
Patient discharged home today. IV removed by RN, all belongings were gathered. Patient and girlfriend were explained discharge instructions and all questions were answered. Patient was alert and appropriate for discharge. Patient wheeled downstairs and helped into private vehicle.
--- NOTE | 2023-02-03 14:00 | NUR ---
I have reviewed and agree with interventions, assessments, and documentation by Flores Ferris LVN.
== END 2023-02-03 14:00 | disposition home or self-care (01) | DRG 322 ==
LOC: PAS IN 05:24 → ORTHO 4S 14:31
PROVIDERS: ADMIT Orthopaedic Surgery; ATTEND Orthopaedic Surgery
PROC: 0LS40ZZ Reposition Left Upper Arm Tendon, Open Approach (ICD-10-PCS; 2023-02-02)
PROC: 3E0T3BZ Introduction of Anesthetic Agent into Peripheral Nerves and Plexi, Percutaneous Approach (ICD-10-PCS; 2023-02-02)
PROC: 3E0T33Z Introduction of Anti-inflammatory into Peripheral Nerves and Plexi, Percutaneous Approach (ICD-10-PCS; 2023-02-02)
PROC: 0RRK00Z Replacement of Left Shoulder Joint with Reverse Ball and Socket Synthetic Substitute, Open Approach (ICD-10-PCS; principal; 2023-02-02 07:20)
DX: M19.012 Primary osteoarthritis, left shoulder (principal); B19.20 Unspecified viral hepatitis C without hepatic coma; J44.9 Chronic obstructive pulmonary disease, unspecified; E11.9 Type 2 diabetes mellitus without complications; G40.909 Epilepsy, unspecified, not intractable, without status epilepticus; X58.XXXA Exposure to other specified factors, initial encounter; M75.122 Complete rotator cuff tear or rupture of left shoulder, not specified as traumatic; M75.22 Bicipital tendinitis, left shoulder; S46.112A Strain of muscle, fascia and tendon of long head of biceps, left arm, initial encounter; Y93.89 Activity, other specified; Y92.89 Other specified places as the place of occurrence of the external cause; Y99.8 Other external cause status; Z79.899 Other long term (current) drug therapy; Z79.82 Long term (current) use of aspirin
CPT/HCPCS: 36415; 80051; 80053; 82948; 85025; 85610; 85730; 87081; 97110; 97161; A4565; A4618; A7000; C1776; G0378; J0690; J1100; J1885; J2250; J2405; J2704; J2795; J3010; J3370; J3480; J3490; J7120